=== PATIENT | male | born 1955 | race African-American/Black ===

== ENCOUNTER 2018-02-19 09:30 | Emergency (ER) | payer OTHER ==
[2018-02-19] MEDS ORDERED: LORazepam 1 MG TAB PO STA ×2 (10:38→12:05)
--- NOTE | 2018-02-19 10:42 | ED ---
General Adult HPI - General Chief complaint: Recheck/Abnormal Lab/Rx Stated complaint: "wants Haldol out of system" Time Seen by Provider: 02/19/18 10:26 Source: patient, RN notes reviewed Mode of arrival: ambulatory Limitations: no limitations - History of Present Illness Initial comments: Patient is a pleasant 62-year-old male presenting to the emergency department with feeling somewhat restless and agitated. Patient states this feeling has been occurring for approximately 7 years. Patient questions if he could have Haldol system. Patient states she does not take Haldol. Patient states he does go to [facility] however has not seen a psychiatrist and a long time. Patient does have an appointment there tomorrow. Patient denies any suicidal or homicidal thoughts. No depression. No hallucinations. Patient denies street drug use other than occasional marijuana. Patient denies hard alcohol use. No physical complaints. - Related Data Home Medications Medication Instructions Recorded Confirmed No Known Home Medications 02/19/18 02/19/18 Allergies Allergy/AdvReac Type Severity Reaction Status Date / Time No Known Allergies Allergy Verified 02/19/18 09:51 Review of Systems ROS Statement: Those systems with pertinent positive or pertinent negative responses have been documented in the HPI. ROS Other: All systems not noted in ROS Statement are negative. Constitutional: Denies: fever Eyes: Denies: eye pain ENT: Denies: ear pain Respiratory: Denies: cough Cardiovascular: Denies: chest pain Endocrine: Denies: fatigue Gastrointestinal: Denies: abdominal pain Genitourinary: Denies: dysuria Musculoskeletal: Denies: back pain Skin: Denies: rash Neurological: Denies: weakness Psychiatric: Denies: depression, auditory hallucinations, visual hallucinations , homicidal thoughts, suicidal thoughts Past Medical History Additional Past Medical History / Comment(s): "some kind of mental illness" History of Any Multi-Drug Resistant Organisms: None Reported Past Surgical History: No Surgical Hx Reported Past Psychological History: Unable to Obtain Smoking Status: Current every day smoker Past Alcohol Use History: None Reported Past Drug Use History: None Reported General Exam Limitations: no limitations General appearance: alert, in no apparent distress Head exam: Present: atraumatic Eye exam: Present: normal appearance Neck exam: Present: normal inspection Respiratory exam: Present: normal lung sounds bilaterally Cardiovascular Exam: Present: regular rate, normal rhythm GI/Abdominal exam: Present: soft. Absent: tenderness Extremities exam: Present: normal inspection Neurological exam: Present: alert Psychiatric exam: Present: normal affect, normal mood. Absent: agitated, homicidal ideation, suicidal ideation Skin exam: Present: normal color Course Vital Signs 02/19/18 09:37 Temperature 98.4 F Pulse Rate 74 Respiratory 20 Rate Blood Pressure 170/79 O2 Sat by Pulse 99 Oximetry Medical Decision Making - Medical Decision Making Long discussion was had with patient and he and I are both in agreement that his medications are best managed by his psychiatrist. Patient states he does have an appointment with [facility] tomorrow and will further discuss this at that time. Patient is able to contract for safety. No suicidal or homicidal thoughts. No hallucinations. Disposition Clinical Impression: Restless Disposition: HOME SELF-CARE Condition: Stable Additional Instructions: Please follow-up tomorrow with [facility] as planned. Please discuss with them your medications and your symptoms. Return for hallucinations, thoughts of harming yourself or others, worsening symptoms or other concerns. Is patient prescribed a controlled substance at d/c from ED?: No Referrals: Margarita Simeon MD [STAFF PHYSICIAN] - 1-2 days Anival Mcghee DO [Doctor of Osteopathic Medicine] - 1-2 days Time of Disposition: 10:42
[2018-02-19 11:27] VITALS: RESP 18
[2018-02-19] MEDS ORDERED: cloNIDine HCL 0.1 MG TAB PO STA (12:05)
--- NOTE | 2018-02-19 12:24 | ED ---
Medical Decision Making - Medical Decision Making 12:24 PM: Patient has continued high blood pressure with no history. Labs and EKG ordered. EKG shows sinus bradycardia 43. LA 134. QRS 106. QT 496. QTc 419. Normal axis. LVH criteria. No acute ST change. 1407: Blood pressure has improved. Patient will need to follow-up with primary care physician regarding hypertension. - Lab Data Result diagrams: 02/19/18 12:20 02/19/18 12:20 Lab Results 02/19/18 02/19/18 02/19/18 Range/Units 12:20 12:20 12:25 WBC 6.5 (3.8-10.6) k/uL RBC 5.38 (4.30-5.90) m/uL Hgb 17.1 (13.0-17.5) gm/dL Hct 52.8 (39.0-53.0) % MCV 98.3 (80.0-100.0) fL MCH 31.8 (25.0-35.0) pg MCHC 32.3 (31.0-37.0) g/dL RDW 14.1 (11.5-15.5) % Plt Count 199 (150-450) k/uL Neutrophils % 57 % Lymphocytes % 28 % Monocytes % 4 % Eosinophils % 7 % Basophils % 2 % Neutrophils # 3.7 (1.3-7.7) k/uL Lymphocytes # 1.8 (1.0-4.8) k/uL Monocytes # 0.3 (0-1.0) k/uL Eosinophils # 0.5 (0-0.7) k/uL Basophils # 0.1 (0-0.2) k/uL Sodium 142 (137-145) mmol/L Potassium 4.4 (3.5-5.1) mmol/L Chloride 104 (98-107) mmol/L Carbon Dioxide 30 (22-30) mmol/L Anion Gap 8 mmol/L BUN 14 (9-20) mg/dL Creatinine 1.22 (0.66-1.25) mg/dL Est GFR (CKD-EPI)AfAm 72 (>60 ml/min/1.73 sqM) Est GFR (CKD-EPI)NonAf 63 (>60 ml/min/1.73 sqM) Glucose 113 H (74-99) mg/dL Calcium 10.0 (8.4-10.2) mg/dL Urine Color Yellow Urine Appearance Clear (Clear) Urine pH 7.0 (5.0-8.0) Ur Specific Webb 1.016 (1.001-1.035) Urine Protein Trace H (Negative) Urine Glucose (UA) Negative (Negative) Urine Ketones Negative (Negative) Urine Blood Negative (Negative) Urine Nitrite Negative (Negative) Urine Bilirubin Negative (Negative) Urine Urobilinogen <2.0 (<2.0) mg/dL Ur Leukocyte Esterase Negative (Negative) Disposition Clinical Impression: Restless, Hypertension Disposition: HOME SELF-CARE Condition: Stable Additional Instructions: Please follow-up tomorrow with [facility] as planned. Please discuss with them your medications and your symptoms. Return for hallucinations, thoughts of harming yourself or others, worsening symptoms or other concerns. Please also follow- up with primary care physician in the next day or 2 for recheck. You will need to have blood pressure rechecked and possibly be placed on medication for this. Is patient prescribed a controlled substance at d/c from ED?: No Referrals: Margarita Simeon MD [STAFF PHYSICIAN] - 1-2 days Anival Mcghee DO [Doctor of Osteopathic Medicine] - 1-2 days
[2018-02-19 12:35] LABS: Basophils # (A) 0.1 k/uL (0-0.2); Basophils % (A) 2 %; Eosinophils # (A) 0.5 k/uL (0-0.7); Eosinophils % (A) 7 %; HCT 52.8 % (39.0-53.0); HGB 17.1 gm/dL (13.0-17.5); Lymphocytes # (A) 1.8 k/uL (1.0-4.8); Lymphocytes % (A) 28 %; MCH 31.8 pg (25.0-35.0); MCHC 32.3 g/dL (31.0-37.0); MCV 98.3 fL (80.0-100.0); Mean Platelet Volume 8.9; Monocytes # (A) 0.3 k/uL (0-1.0); Monocytes % (A) 4 %; Neutrophils # (A) 3.7 k/uL (1.3-7.7); Neutrophils % (A) 57 %; Platelet Count 199 k/uL (150-450); RBC 5.38 m/uL (4.30-5.90); RDW 14.1 % (11.5-15.5); WBC 6.5 k/uL (3.8-10.6)
[2018-02-19 12:44] LABS: Appearance,Urine Clear (Clear); Bilirubin,Urine Negative (Negative); Blood,Urine Negative (Negative); Color,Urine Yellow; Glucose,Urine (UA) Negative (Negative); Ketones,Urine Negative (Negative); Leukocyte Esterase,Urine Negative (Negative); Nitrite,Urine Negative (Negative); Protein,Urine Trace (Negative); Specific Gravity,Urine 1.016 (1.001-1.035); Urobilinogen,Urine <2.0 mg/dL (<2.0)
[2018-02-19 12:48] LABS: Potassium 4.4 mmol/L (3.5-5.1)
--- NOTE | 2018-02-19 13:30 | XR ---
EXAMINATION TYPE: XR chest 2V DATE OF EXAM: 02/19/2018 COMPARISON: NONE TECHNIQUE: PA and lateral views submitted. HISTORY: Hypertension FINDINGS: The lungs are clear and there is no pneumothorax, pleural effusion, or focal pneumonia. Atheroscler otic change of the aorta. There is hyperinflation. Hypertrophic and degenerative change of the spine. No overt failure. IMPRESSION: 1. No acute process. Correlate for COPD.
[2018-02-19 14:08] VITALS: BP 164/83; PULSE 55; TEMP 98
== END 2018-02-19 14:14 | disposition home or self-care (01) ==
LOC: EC 09:30
DX: I10 Essential (primary) hypertension (principal); R45.1 Restlessness and agitation; R00.1 Bradycardia, unspecified; F17.200 Nicotine dependence, unspecified, uncomplicated
CPT/HCPCS: 36415; 71046; 80048; 81003; 85025; 93005; 99285

== ENCOUNTER 2019-12-16 07:31 | Inpatient (IN) | payer MEDICARE, OTHER ==
--- NOTE | 2019-12-16 07:53 | ED ---
General Adult HPI - General Chief complaint: Psychiatric Symptoms Stated complaint: blood draw Time Seen by Provider: 12/16/19 07:41 Source: patient, RN notes reviewed Mode of arrival: ambulatory Limitations: no limitations - History of Present Illness Initial comments: Patient is a 64 year old male presenting to the emergency Department with concerns regarding his Depakote level. Patient states he is not sure if he might have too much. Patient states he is not actually taking it. Patient has flight of ideas. Patient states he wants his fingernails cleaned. Patient is talking to people who are not present. Patient is acting somewhat agitated. - Related Data Home Medications Medication Instructions Recorded Confirmed Unable To Assess [Unable to Assess] 12/16/19 12/16/19 Allergies Allergy/AdvReac Type Severity Reaction Status Date / Time No Known Allergies Allergy Verified 12/16/19 07:39 Review of Systems ROS Statement: Those systems with pertinent positive or pertinent negative responses have been documented in the HPI. ROS Other: All systems not noted in ROS Statement are negative. Constitutional: Denies: fever Eyes: Denies: eye pain ENT: Denies: ear pain Respiratory: Denies: cough Cardiovascular: Denies: chest pain Endocrine: Denies: fatigue Gastrointestinal: Denies: abdominal pain Genitourinary: Denies: dysuria Musculoskeletal: Denies: back pain Skin: Denies: rash Neurological: Denies: weakness Past Medical History Additional Past Medical History / Comment(s): "some kind of mental illness" History of Any Multi-Drug Resistant Organisms: None Reported Past Surgical History: No Surgical Hx Reported Past Psychological History: Unable to Obtain Smoking Status: Current every day smoker Past Alcohol Use History: None Reported Past Drug Use History: Marijuana General Exam Limitations: no limitations General appearance: alert, in no apparent distress Head exam: Present: atraumatic, normocephalic Eye exam: Present: normal appearance Respiratory exam: Present: normal lung sounds bilaterally Cardiovascular Exam: Present: regular rate, normal rhythm Extremities exam: Present: normal inspection Neurological exam: Present: alert Expanded Focused psych exam: Present: internal stimuli, restlessness, flight of ideas Skin exam: Present: normal color Course Vital Signs 12/16/19 07:32 Temperature 97.7 F Pulse Rate 99 Respiratory 18 Rate Blood Pressure 140/83 O2 Sat by Pulse 97 Oximetry EKG Findings - EKG Comments: EKG Findings:: Normal sinus rhythm 79. [place] 118. QRS 102. QT 4:30. QTC 493. Normal axis. LVH. No acute ST change. Medical Decision Making - Medical Decision Making Patient seen by mental health services was plan for admission - Lab Data Result diagrams: 12/16/19 07:50 12/16/19 07:50 Lab Results 12/16/19 12/16/19 12/16/19 Range/Units 07:50 07:50 08:13 WBC 9.7 (3.8-10.6) k/uL RBC 5.37 (4.30-5.90) m/uL Hgb 17.2 (13.0-17.5) gm/dL Hct 52.1 (39.0-53.0) % MCV 97.0 (80.0-100.0) fL MCH 32.0 (25.0-35.0) pg MCHC 33.0 (31.0-37.0) g/dL RDW 13.3 (11.5-15.5) % Plt Count 187 (150-450) k/uL Neutrophils % 64 % Lymphocytes % 25 % Monocytes % 6 % Eosinophils % 2 % Basophils % 0 % Neutrophils # 6.2 (1.3-7.7) k/uL Lymphocytes # 2.4 (1.0-4.8) k/uL Monocytes # 0.6 (0-1.0) k/uL Eosinophils # 0.2 (0-0.7) k/uL Basophils # 0.0 (0-0.2) k/uL Sodium 136 L (137-145) mmol/L Potassium 4.1 (3.5-5.1) mmol/L Chloride 104 (98-107) mmol/L Carbon Dioxide 24 (22-30) mmol/L Anion Gap 8 mmol/L BUN 22 H (9-20) mg/dL Creatinine 1.17 (0.66-1.25) mg/dL Est GFR (CKD-EPI)AfAm 75 (>60 ml/min/1.73 sqM) Est GFR (CKD-EPI)NonAf 65 (>60 ml/min/1.73 sqM) Glucose 108 H (74-99) mg/dL Calcium 9.4 (8.4-10.2) mg/dL Urine Opiates Screen Not Detected (NotDetected) Ur Oxycodone Screen Not Detected (NotDetected) Urine Methadone Screen Not Detected (NotDetected) Ur Propoxyphene Screen Not Detected (NotDetected) Ur Barbiturates Screen Not Detected (NotDetected) Valproic Acid <10.0 ug/mL U Tricyclic Antidepress Not Detected (NotDetected) Ur Phencyclidine Scrn Not Detected (NotDetected) Ur Amphetamines Screen Detected H (NotDetected) U Methamphetamines Scrn Detected H (NotDetected) U Benzodiazepines Scrn Not Detected (NotDetected) Urine Cocaine Screen Not Detected (NotDetected) U Marijuana (THC) Screen Detected H (NotDetected) Serum Alcohol <10 mg/dL Disposition Clinical Impression: Psychosis Disposition: TRANSFER TO PSYCH HOSP/UNIT Is patient prescribed a controlled substance at d/c from ED?: No Referrals: None,Stated [Primary Care Provider] - 1-2 days Decision Time: 13:30
[2019-12-16 08:13] LABS: Basophils % (A) 0 %; Eosinophils # (A) 0.2 k/uL (0-0.7); Eosinophils % (A) 2 %; HCT 52.1 % (39.0-53.0); HGB 17.2 gm/dL (13.0-17.5); Lymphocytes # (A) 2.4 k/uL (1.0-4.8); Lymphocytes % (A) 25 %; Mean Platelet Volume 9.9; Monocytes # (A) 0.6 k/uL (0-1.0); Monocytes % (A) 6 %; Neutrophils # (A) 6.2 k/uL (1.3-7.7); Neutrophils % (A) 64 %; Platelet Count 187 k/uL (150-450); RBC 5.37 m/uL (4.30-5.90); RDW 13.3 % (11.5-15.5); WBC 9.7 k/uL (3.8-10.6)
[2019-12-16 08:24] LABS: African American GFR (CKD) 75 (>60 ml/min/1.73 sqM); Alcohol <10 mg/dL; Anion Gap 8 mmol/L; Blood Urea Nitrogen 22 mg/dL (9-20); Calcium 9.4 mg/dL (8.4-10.2); Carbon Dioxide 24 mmol/L (22-30); Chloride 104 mmol/L (98-107); Glucose 108 mg/dL (74-99); Non-African American GFR(CKD) 65 (>60 ml/min/1.73 sqM); Potassium 4.1 mmol/L (3.5-5.1); Sodium 136 mmol/L (137-145)
[2019-12-16 08:50] LABS: Amphetamine Screen,Urine Detected (NotDetected); Barbiturate Screen,Urine Not Detected (NotDetected); Benzodiazepines Screen,Urine Not Detected (NotDetected); Cocaine Screen,Urine Not Detected (NotDetected); Methadone Screen, Urine Not Detected (NotDetected); Opiate Screen,Urine Not Detected (NotDetected); Oxycodone Screen, Urine Not Detected (NotDetected); Phencyclidine Screen,Urine Not Detected (NotDetected); Tricyclic Antidepressant,Urine Not Detected (NotDetected); Urn Cannabinoid Scrn Detected (NotDetected)
[2019-12-16 09:24] LABS: Valproic Acid (Depakene) <10.0 ug/mL
[2019-12-16] MEDS ORDERED: LORazepam 1 MG TAB PO PRN (18:21)
[2019-12-16] MEDS ORDERED: MAGNESIUM HYDROXIDE 2,400 MG/10 ML CUP PO PRN (18:21)
[2019-12-16] MEDS ORDERED: MAG HYDROX/AL HYDROX/SIMETH 30 ML CUP PO PRN (18:21)
[2019-12-16] MEDS ORDERED: ACETAMINOPHEN TAB 325 MG TAB PO PRN (18:21)
[2019-12-16] MEDS ORDERED: ZIPRASIDONE 20 MG VIAL IM PRN (18:21)
[2019-12-16] MEDS ORDERED: LORazepam 2 MG/ML INJ IM PRN (18:26)
[2019-12-16] MEDS ORDERED: traZODone HCL 50 MG TAB PO PRN (18:26)
[2019-12-16 19:38] VITALS: RESP 16
[2019-12-16] MEDS: NICOTINE 14MG/24HR PATCH TRANSDERM SCH (21:48)
--- NOTE | 2019-12-16 23:10 | P.PN ---
Progress Note - Text Progress Note Date: 12/16/19 as i was starting the interview, patient turned violent , using offensive language , and violent gestures with his hand . I had to leave the room and stop the interview please notify sound physicians, when patient is more appropriate for evaluation
[2019-12-17 08:49] LABS: Albumin 3.9 g/dL (3.5-5.0); Calcium 9.2 mg/dL (8.4-10.2); Potassium 4.3 mmol/L (3.5-5.1); Total Bilirubin 0.8 mg/dL (0.2-1.3); Total Protein 6.6 g/dL (6.3-8.2)
[2019-12-17] MEDS ORDERED: BENZTROPINE MESYLATE 1 MG TAB PO PRN (09:04)
[2019-12-17] MEDS: NICOTINE 14MG/24HR PATCH TRANSDERM SCH (11:19)
[2019-12-17] MEDS: THIOTHIXENE 5 MG CAP PO SCH ×2 (11:19→22:13)
--- NOTE | 2019-12-17 13:10 | P.HP ---
Psychiatric H&P - . H&P Date: 12/17/19 History & Physical: IDENTIFYING DATA: Is a 64-year-old -[place] male who has a history of chronic and persistent mental illness. He presented to the emergency department acutely agitated and requesting a "Depakote level." HISTORY OF PRESENT ILLNESS: He presented acutely agitated and according to the EPS notes he was pacing and yelling randomly. He perseverated about needing a Depakote level and complaining that his "feet hurt." The EPS nurse notes that he appeared to be responding to internal stimuli. He told me he came in hospital because he was homeless and needed to get back on Navane. Speech was vague and disorganized. He expressed today well-formed delusional belief that "sometime in the past" his medications were "tampered." He alleged that he has a "lump" in his throat and when he presses the "lump" he is able to speak like a "white person." He also complained that his been homeless for the last 3 weeks after being evicted from his apartment. He allegedly lived in the apartment since 2000 (his history is consistent because he also alleged that he was living in [place] in 2000). His landlord evicted him because the landlord alleged he "did something". He gave a disjointed than incoherent story about underage drinking, dancing and bothering the neighbors. Since he was evicted from the apartment he has been sleeping outside at a local park. He is going to [employer]ian[employer] for meals. He was unable to get into the halfway because they were "full". He described feeling depressed about his homeless situation but denied thoughts of or suicide. He was similarly anxious about his homeless situation but denied persistent and uncontrollable anxiety. He denied use of alcohol or drugs. He denied experiencing auditory, visual or olfactory hallucinations, ideas reference, thought insertion set her up. His UDS was positive for amphetamine, methamphetamine and marijuana. PAST PSYCHIATRIC HISTORY: He has history of a schizophrenia. According to the [facility] records he was last evaluated in November 2016. Where he was prescribed olanzapine 10 mg daily. He would not talk about past psychiatric hospitalizations. PAST MEDICAL HISTORY: See hospitalist consult note ALLERGIES: NO KNOWN DRUG ALLERGIES SUBSTANCE USE HISTORY: He denied a history of alcohol or drug use problems. FAMILY PSYCHIATRIC/SUBSTANCE USE HISTORY: He is unaware of family history of mental illness LEGAL HISTORY: Denied SOCIAL HISTORY: His born and raised in [place]. He graduated from high school. He alleged that he is and has one son with whom he has limited contact ([facility] liaison was present during team meeting and stated that she was unaware that he was ever ). He is unemployed and receives Social Security disability. MENTAL STATUS EXAM: He presented as a thin and malodorous elderly - [place] male who was pleasant on approach. He made eye contact and attended the interview. He had no distinguishing features or prominent physical abnormalities. He had a blunted facial expression. He is alert and oriented to person, place and time. He has psychomotor retardation but no abnormal involuntary movements. Her speech was spontaneous with decreased rate and rhythm. He had no articulation difficulties. His affect was blunted but stable and appropriate. He denied suicidal ideation or wishes. He denied homicidal ideation. He denied feeling hopeless, helpless or worthless. He r uminated about his homelessness did not express clear ideas reference or paranoid ideation. He expressed today well-formed and apparently persistent delusional belief as described above. His thinking was concrete and associations were intermittently not goal directed. He denied hallucinations and did not appear to be responding to internal stimuli. Global impression of intellect is average. He has limited awareness or understanding of his illness is accepting of the need for treatment. STRENGTHS: Stable income, good physical health WEAKNESSES: Homelessness, lack of family support, chronic persistent mental illness IMPRESSION: He is a 64-year-old [place] male who has history of a schizophrenia. [facility] and disorganized. He lost his apartment through his goal and has been living outside [facility]. The best I can tell is that he has been out of mental health treatment for several years. He expressed interest in restarting treatment, specifically Navane, and speaking with the child protective services social worker. He should be treated inpatient basis with combination of psychopharmacology and multimodal therapy. He would benefit from engagement with community mental health services. PRINCIPLE DIAGNOSIS: Schizophrenia continuous, methamphetamine use disorder, cannabis use disorder, lack of housing, poor compliance with mental health treatment RECOMMENDATION: Admit to the psychiatric unit. Safety precautions. Consult medicine for initial physical exam and medical history. child protective services social worker to complete initial psychosocial assessment coordinate discharge and aftercare. Begin Navane 5 mg by mouth twice a day and titrated according to clinical response and tolerance. Cogentin 1 mg by mouth twice a day when necessary for EPS. Encourage participation in therapeutic groups and activities. Evaluate clinical status response to treatment daily basis. Allergies Allergy/AdvReac Type Severity Reaction Status Date / Time No Known Allergies Allergy Verified 12/16/19 07:39 Vital Signs Temp 0 F L 12/17/19 03:33 Pulse 61 12/16/19 19:37 Resp 16 12/16/19 19:37 BP 145/87 12/16/19 19:37 Pulse Ox 99 12/16/19 19:37 Intake & Output 12/16/19 12/17/19 12/17/19 18:59 06:59 18:59 Weight 68.039 kg 62.5 kg Laboratory Last Values WBC 9.7 k/uL (3.8-10.6) 12/16/19 07:50 RBC 5.37 m/uL (4.30-5.90) 12/16/19 07:50 Hgb 17.2 gm/dL (13.0-17.5) 12/16/19 07:50 Hct 52.1 % (39.0-53.0) 12/16/19 07:50 MCV 97.0 fL (80.0-100.0) 12/16/19 07:50 MCH 32.0 pg (25.0-35.0) 12/16/19 07:50 MCHC 33.0 g/dL (31.0-37.0) 12/16/19 07:50 RDW 13.3 % (11.5-15.5) 12/16/19 07:50 Plt Count 187 k/uL (150-450) 12/16/19 07:50 Neutrophils % 64 % 12/16/19 07:50 Lymphocytes % 25 % 12/16/19 07:50 Monocytes % 6 % 12/16/19 07:50 Eosinophils % 2 % 12/16/19 07:50 Basophils % 0 % 12/16/19 07:50 Neutrophils # 6.2 k/uL (1.3-7.7) 12/16/19 07:50 Lymphocytes # 2.4 k/uL (1.0-4.8) 12/16/19 07:50 Monocytes # 0.6 k/uL (0-1.0) 12/16/19 07:50 Eosinophils # 0.2 k/uL (0-0.7) 12/16/19 07:50 Basophils # 0.0 k/uL (0-0.2) 12/16/19 07:50 Sodium 136 mmol/L (137-145) L 12/16/19 07:50 Potassium 4.1 mmol/L (3.5-5.1) 12/16/19 07:50 Chloride 104 mmol/L (98-107) 12/16/19 07:50 Carbon Dioxide 24 mmol/L (22-30) 12/16/19 07:50 Anion Gap 8 mmol/L 12/16/19 07:50 BUN 22 mg/dL (9-20) H 12/16/19 07:50 Creatinine 1.17 mg/dL (0.66-1.25) 12/16/19 07:50 Est GFR (CKD-EPI)AfAm 75 (>60 ml/min/1.73 sqM) 12/16/19 07:50 Est GFR (CKD-EPI)NonAf 65 (>60 ml/min/1.73 sqM) 12/16/19 07:50 Glucose 108 mg/dL (74-99) H 12/16/19 07:50 Calcium 9.4 mg/dL (8.4-10.2) 12/16/19 07:50 Urine Opiates Screen Not Detected (NotDetected) 12/16/19 08:13 Ur Oxycodone Screen Not Detected (NotDetected) 12/16/19 08:13 Urine Methadone Screen Not Detected (NotDetected) 12/16/19 08:13 Ur Propoxyphene Screen Not Detected (NotDetected) 12/16/19 08:13 Ur Barbiturates Screen Not Detected (NotDetected) 12/16/19 08:13 Valproic Acid <10.0 ug/mL 12/16/19 07:50 U Tricyclic Antidepress Not Detected (NotDetected) 12/16/19 08:13 Ur Phencyclidine Scrn Not Detected (NotDetected) 12/16/19 08:13 Ur Amphetamines Screen Detected (NotDetected) H 12/16/19 08:13 U Methamphetamines Scrn Detected (NotDetected) H 12/16/19 08:13 U Benzodiazepines Scrn Not Detected (NotDetected) 12/16/19 08:13 Urine Cocaine Screen Not Detected (NotDetected) 12/16/19 08:13 U Marijuana (THC) Screen Detected (NotDetected) H 12/16/19 08:13 Serum Alcohol <10 mg/dL 12/16/19 07:50 12/17/19 08:48 12/17/19 13:08
[2019-12-17 19:23] LABS: Hemoglobin A1C 5.5 % (4.0-6.0)
[2019-12-18] MEDS: THIOTHIXENE 5 MG CAP PO SCH ×2 (10:32→20:54)
--- NOTE | 2019-12-18 12:02 | P.PN ---
Progress Note - Text Progress Note Date: 12/18/19 Clinical Problems: Schizophrenia continuous, methamphetamine use disorder, cannabis use disorder, lack of housing, poor compliance with mental health treatment Interim history: I reviewed the medical record, interviewed the patient and discuss his treatment and treatment plan during team meeting. He became angry with me when I asked to talk about the results of the urine drug screen. He alleged that he was "at an apartment" and took a "drag" on his cigarette when he noticed that there were something in the cigarette more than tobacco. He then threw the cigarette away. He's been compliant with Navane 5 mg by mouth twice a day and denied any side effects. He perseverated about planning to move into an apartment. He talked as though he would remain in the hospital until apartment became available. He became angry when I told that he would most likely be discharge before his apar tment becomes available and we would need to find an alternate arrangement such as a halfway. He would not cooperate with the medical history and physical exam on admission. Mental status exam: He presented as a thin elderly Pakistani male who is irritable and restless. He made eye contact and appeared to attend to the interview. He had a blunted facial expression. He showed no abnormal involu ntary movements. Her speech was spontaneous and consistent with his mood. His affect was labile but not intense and appropriate. He denied suicidal or homicidal ideation. He denied feeling hopeless, helpless or worthless. I did not express clear ideas reference or delusional thoughts but was guarded and suspicious. His thinking was clear concrete and associations were not fully organized and goal directed. He did not appear to responding to internal stimuli. Assessment: I suspect that his psychosis worsens as a result of use of methamphetamine. Plan: Continue inpatient treatment. Continue seizure precautions. Continue Navane 5 mg by mouth twice a day and titrated according to clinical response and tolerance. scrap yard worker to coordinate discharge and aftercare. Evaluate clinical status response to treatment daily basis.
[2019-12-19 06:35] VITALS: BP 138/65; PULSE 44
[2019-12-19] MEDS: THIOTHIXENE 5 MG CAP PO SCH (09:23)
[2019-12-19 13:33] VITALS: TEMP 98.1
--- NOTE | 2019-12-19 15:13 | P.DS ---
Providers Date of admission: 12/16/19 18:15 Attending physician: Serge Guido MD Consults: 12/16/19 18:21 Consult Physician Routine Consulting Provider: [facility] Consult Reason/Comments: H&P and medical Do you want consulting provider notified?: Yes Primary care physician: Stated None - Discharge Diagnosis(es) (1) Schizophrenia in partial remission with history of multiple episodes Current Visit: Yes Status: Chronic Priority: Medium (2) Mild methamphetamine use disorder Current Visit: Yes Status: Acute Priority: High (3) Tobacco use disorder Current Visit: Yes Status: Chronic Priority: Medium Hospital Course: HISTORY: He is a 64-year-old -Polish male who has a history of chronic and persistent mental illness. He presented to the emergency department acutely agitated and requesting a "Depakote level." He presented acutely agitated and according to the EPS notes he was pacing and yelling randomly. He perseverated about needing a Depakote level and complaining that his "feet hurt." The EPS nurse notes that he appeared to be responding to internal stimuli. He told me he came in hospital because he was homeless and needed to get back on Navane. Speech was vague and disorganized. He expressed today well-formed delusional belief that "sometime in the past" his medications were "tampered." He alleged that he has a "lump" in his throat and when he presses the "lump" he is able to speak like a "white person." He also complained that his been homeless for the last 3 weeks after being evicted from his apartment. He allegedly lived in the apartment since 2000 (his history is consistent because he also alleged that he was living in [place] in 2000). His landlord evicted him because the landlord alleged he "did something". He gave a disjointed than incoherent story about underage drinking, dancing and bothering the neighbors. Since he was evicted from the apartment he has been sleeping outside at a local park. He is going to [employer] for meals. He was unable to get into the [facility] because they were "full". He described feeling depressed about his homeless situation but denied thoughts of or suicide. He was similarly anxious about his homeless situation but denied persistent and uncontrollable anxiety. He denied use of alcohol or drugs. He denied experiencing auditory, visual or olfactory hallucinations, ideas reference, thought insertion set her up. His UDS was positive for amphetamine, methamphetamine and marijuana. He became markedly angry and irritable when I inquired about his methamphetamine use after explaining the results of the urine drug screen. He has history of a schizophrenia. According to the [facility] records he was last evaluated in November 2016. Where he was prescribed olanzapine 10 mg daily. He would not talk about past psychiatric hospitalizations. HOSPITAL COURSE: We admitted him to the psychiatric unit voluntarily under the care of this technical writer and editor. We provided a comprehensive biopsychosocial assessment. He would not speak or consent to the medical evaluation. We started Navane 5 mg by mouth twice a day. He experienced no adverse effects to the initial doses. His irritability and agitation quickly abated. He perseverated about wanting to be discharge to an apartment. The social work job titles met with him and explained that we would not be able to place him in an apartment. Our only option would be to refer him to the local [facility] who could assist him with available housing r esources. He posed no management problem and had no episodes of behavioral dyscontrol. He participated in therapeutic groups and activities. MENTAL STATUS ON DISCHARGE: He presented as a thin elderly Polish male who is irritable and restless. He made eye contact and appeared to attend to the interview. He had a blunted facial expression. He showed no abnormal involuntary movements. Her speech was spontaneous and consistent with his mood. His affect was labile but not intense and appropriate. He denied suicidal or homicidal ideation. He denied feeling hopeless, helpless or worthless. He did not express clear ideas reference or delusional thoughts but was guarded and suspicious. His thinking was concrete but his associations were goal directed. He did not appear to responding to internal stimuli. DISPOSITION: He is discharged local [facility] with an appointment at [facility] on 12/24/2019 at 2:30 PM. His only discharge medication was Navane 5 mg by mouth twice a day. Patient Condition at Discharge: Stable Plan - Discharge Summary New Discharge Prescriptions: New Thiothixene [Navane] 5 mg PO BID #60 cap Discharge Medication List Thiothixene [Navane] 5 mg PO BID #60 cap 12/19/19 [Rx] Follow up Appointment(s)/Referral(s): [facility] [Outside] - 12/24/19 2:30 pm (w/ [facility] in person ) None,Stated [Primary Care Provider] - 1-[address] [facility] [NON-STAFF] - 1 Week Patient Instructions/Handouts: Schizophrenia (DC), Cannabis Abuse (DC), Methamphetamine Abuse (DC) Activity/Diet/Wound Care/Special Instructions: Activity and diet as tolerated. Avoid the use of street drugs and alcohol. Take all medications as prescribed. When you are in need of refills on your medications please contact your medical provider and/or outpatient psychiatrist to have this done. Please go to scheduled outpatient appointment for aftercare treatment. If symptoms return or become worse, call the crisis line at and/or go to the nearest emergency room for evaluation Discharge Disposition: HOME SELF-CARE
== END 2019-12-19 14:29 | disposition home or self-care (01) | DRG 885 ==
LOC: EC 07:31 → 3MHU 18:15
PROVIDERS: ADMIT Psychiatry & Neurology Psychiatry; ATTEND Psychiatry & Neurology Psychiatry
DX: F20.9 Schizophrenia, unspecified (principal); F12.10 Cannabis abuse, uncomplicated; F15.10 Other stimulant abuse, uncomplicated; F17.200 Nicotine dependence, unspecified, uncomplicated; Z59.0 Homelessness
CPT/HCPCS: 36415; 80048; 80053; 80061; 80164; 80306; 80320; 82075; 83036; 84443; 85025; 93005; 99285

== ENCOUNTER 2020-11-25 12:12 | Observation (INO) | payer MEDICARE ==
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
[2020-11-25 17:20] LABS: Amphetamine Screen,Urine Detected (NotDetected); Barbiturate Screen,Urine Not Detected (NotDetected); Benzodiazepines Screen,Urine Not Detected (NotDetected); Cocaine Screen,Urine Detected (NotDetected); Methadone Screen, Urine Not Detected (NotDetected); Opiate Screen,Urine Not Detected (NotDetected); Oxycodone Screen, Urine Not Detected (NotDetected); Phencyclidine Screen,Urine Not Detected (NotDetected); Tricyclic Antidepressant,Urine Not Detected (NotDetected); Urn Cannabinoid Scrn Detected (NotDetected)
[2020-11-25] MEDS ORDERED: OLANZapine 10 MG VIAL IM STA (19:12)
[2020-11-25] MEDS ORDERED: SODIUM CHLORIDE 0.9% 1,000 ML IV ONE (19:15)
[2020-11-25 19:39] LABS: Basophils % (A) 0 %; Eosinophils # (A) 0.2 k/uL (0-0.7); Eosinophils % (A) 2 %; HCT 47.4 % (39.0-53.0); HGB 16.3 gm/dL (13.0-17.5); Lymphocytes # (A) 1.9 k/uL (1.0-4.8); Lymphocytes % (A) 22 %; MCH 33.1 pg (25.0-35.0); MCHC 34.5 g/dL (31.0-37.0); Mean Platelet Volume 10.5; Monocytes # (A) 0.5 k/uL (0-1.0); Monocytes % (A) 6 %; Neutrophils # (A) 6.1 k/uL (1.3-7.7); Neutrophils % (A) 68 %; Platelet Count 157 k/uL (150-450); RBC 4.93 m/uL (4.30-5.90); RDW 13.8 % (11.5-15.5)
[2020-11-25 19:56] LABS: Albumin 5.1 g/dL (3.5-5.0); Calcium 10.1 mg/dL (8.4-10.2); Potassium 4.2 mmol/L (3.5-5.1); Total Bilirubin 0.6 mg/dL (0.2-1.3); Total Protein 8.2 g/dL (6.3-8.2)
[2020-11-25] MEDS ORDERED: LORazepam 2 MG/ML INJ IV STA (22:46)
--- NOTE | 2020-11-26 01:00 | P.HPIM ---
History of Present Illness H&P Date: 11/26/20 The patient is a 65-year-old male with a PMH of psychosis and polysubstance abuse who was brought in under police custody due to erratic behavior. The patient had reported recently using multiple substances including methamphetamine and cocaine. In the emergency room, the patient continued to be hostile and refused to answer questions. History was thereby very limited. The patient appeared to be acting erratically, aggressively posturing, grabbing at his own throat, and demanding that he be allowed to leave. He appeared to be internally preoccupied and gesturing to the wall and the clock. The patient also refused to speak multiple times. Laboratory evaluation was remarkable for urine toxicology positive for cocaine, marijuana, and methamphetamines. Review of systems: Unable to perform as patient refused to answer questions Physical examination: General: non toxic, no distress, appears at stated age, normal weight Derm: no unusual rashes/lesions no unusual visible ecchymoses Head: atraumatic, normocephalic, symmetric Eyes: Appeared to have intact EOM, patient refused examination ENT: Nose and ears appear atraumatic Neck: Patient refused Mouth: Patient refused Cardiovascular: Patient refused Lungs: Patient refused Abdominal: Patient refused Ext: Ambulating throughout the room without difficulty Neuro: Unable to assess, no obvious focal deficits noted Psych: Erratic, internally preoccupied, tangential thought process, aggressively posturing Assessment/plan Psychosis, likely secondary to polysubstance abuse -Psychiatry evaluated the patient in the emergency room and cleared him for medical admission -Zyprexa given one time in ED -Cardiac monitoring if patient allows -Advised on importance of cessation Elevated BP, likely secondary to polysubstance abuse -Monitor for now Elevated BUN -Likely prerenal azotemia due to substance abuse -Continue with IV fluids and monitor BMP DVT prophylaxis -Lovenox The patient is admitted with an anticipated less than 2 midnight stay for evaluation of psychosis CODE STATUS: Full Code Discussed with: Patient Anticipated discharge date: in am Anticipated discharge place: Home A total of 35 minutes was spent on the care of this complex patient more than 50% of the time was spent in counseling and care coordination. Past Medical History Additional Past Medical History / Comment(s): "some kind of mental illness" History of Any Multi-Drug Resistant Organisms: None Reported Past Surgical History: Orthopedic Surgery Additional Past Surgical History / Comment(s): lt knee Past Psychological History: Unable to Obtain, Schizophrenia Smoking Status: Current every day smoker, Vaper Past Alcohol Use History: None Reported Past Drug Use History: Marijuana Medications and Allergies Home Medications Medication Instructions Recorded Confirmed Type Unable To Assess [Unable to Assess] 11/25/20 11/25/20 History Allergies Allergy/AdvReac Type Severity Reaction Status Date / Time No Known Allergies Allergy Verified 11/25/20 14:10 Physical Exam Vitals: Vital Signs Temp Pulse Pulse Resp BP Pulse Ox 11/25/20 22:17 98.5 F 52 L 18 11/25/20 21:40 84 22 135/78 98 11/25/20 20:01 98.7 F 67 20 125/84 65 L 11/25/20 12:13 97.9 F 100 20 170/104 99 Intake and Output 11/25/20 11/25/20 11/26/20 14:59 22:59 06:59 Other: Weight 68.039 kg Results CBC & Chem 7: 11/25/20 19:26 11/25/20 19:26 Labs: Abnormal Lab Results - Last 24 Hours (Table) 11/25/20 11/25/20 Range/Units 16:54 19:26 BUN 28 H (9-20) mg/dL Glucose 109 H (74-99) mg/dL Albumin 5.1 H (3.5-5.0) g/dL Ur Amphetamines Screen Detected H (NotDetected) U Methamphetamines Scrn Detected H (NotDetected) Urine Cocaine Screen Detected H (NotDetected) U Marijuana (THC) Screen Detected H (NotDetected)
[2020-11-26 04:56] VITALS: BP 130/69; RESP 16; TEMP 98.2
[2020-11-26] MEDS ORDERED: ENOXAPARIN 40 MG/0.4 ML SYRINGE SQ SCH (09:00)
[2020-11-26] MEDS ORDERED: HALOPERIDOL LACTATE 5 MG/ML 1 ML VIAL IM PRN (09:20)
[2020-11-26] MEDS ORDERED: haloperidoL 5 MG TAB PO PRN (09:20)
[2020-11-26] MEDS ORDERED: LORazepam 2 MG/ML INJ IM PRN (09:20)
[2020-11-26] MEDS ORDERED: LORazepam 1 MG TAB PO PRN (09:20)
[2020-11-26] MEDS ORDERED: diphenhydrAMINE 50 MG/ML 1 ML VIAL IM PRN (09:21)
[2020-11-26 09:41] LABS: African American GFR (CKD) 89.9 (60.0-200.0); Magnesium 2.2 mg/dL (1.5-2.4); Non-African American GFR(CKD) 77.5 (60.0-200.0); Potassium 4.3 mmol/L (3.5-5.5)
--- NOTE | 2020-11-26 12:33 | P.CN ---
Psychiatric Consult - . Consult date: 11/26/20 Consult:: IDENTIFYING DATA: This patient is a ?, unemployed, 65-year-old - [place]an male was admitted for psychosis. HISTORY OF PRESENT ILLNESS: The patient presented to the hospital on 11/25/20, brought in by police due to erratic behavior. The patient has been using multiple substances including methamphetamine and cocaine. He was noted to be very hostile and refused to answer questions in the emergency department. He was also noted to be internally preoccupied often gesturing to the wall and the clock. UDS was positive for cocaine, marijuana, and methamphetamines. The initial disposition was to discharge the patient after being given Zyprexa 5 mg IM, but the patient continued to be elevated, agitated, and responding to internal stimuli and was subsequently admitted to the hospital. Upon evaluation this morning, the patient continues to be this point significant symptoms of psychosis and kenia. He is currently nonsensical in his speech and is often speaking in many tangents and pointing at objects throughout the room. The patient currently believes that he has been admitted to a psychiatric unit, despite him being on the hospital floor. He is denying any suicidal or homicidal ideation, intention, and/or plan. Although he is denying any auditory or visual hallucinations, the patient appears to be responding to internal stimuli. He does admit to substance abuse. As per nursing report, the patient has been standing in the doorway and has been agitated. The patient has been yelling, "The court! The court!" nonsensically and is not easily re-directed. The patient is currently a poor historian at this time and much of the following history was obtained through chart review from the patient's previous inpatient admission on to the mental health unit in December 2019. PAST PSYCHIATRIC HISTORY: Patient has a history of schizophrenia. He has had previous chosen medications including Zyprexa and navane. He was last admitted to a psychiatric unit in December 2019. He was discharged on Navane. The patient follows up with [facility]. PAST MEDICAL HISTORY: ALLERGIES: NO KNOWN DRUG ALLERGIES CHEMICAL DEPENDENCY HISTORY: Patient admits to marijuana, cocaine, methamphetamine use. He has was consistent with cocaine, marijuana, and methamphetamines testing positive. FAMILY PSYCHIATRIC/SUBSTANCE USE HISTORY: Unable to assess SOCIAL HISTORY: As per chart review, the patient was born and raised in [place]. He graduated high school. He currently is unemployed and receives SSDI. MENTAL STATUS EXAM: General Appearance: Patient appears to be younger than stated age, is alert, difficult to direct, is shirtless and has multiple tattoos. Behavior: The patient is constantly pacing back and forth in his hospital room. He is often gesturing to multiple objects in the room with his hands. Psycho motor activity is elevated. Speech: Patient's speech is fluent, spontaneous, pressured, and nonsensical. Mood/Affect: Patient reports their mood is "feeling okay", affect is euphoric and intense Suicidality/Homicidality: Patient is currently denying any suicidal or homicidal ideation, intention, and/or plan. Perceptions: Patient is currently denying any auditory or visual hallucinations. Though content/process: The patient appears to be grossly disorganized and delusional. Memory and concentration: Unable to assess. Grossly intact. Judgment and insight: Very poor Vital Signs Temp 98.2 F 11/26/20 04:55 Pulse 54 L 11/26/20 04:55 Resp 16 11/26/20 04:55 BP 130/69 11/26/20 04:55 Pulse Ox 98 11/26/20 04:55 Intake & Output 11/25/20 11/26/20 11/26/20 18:59 06:59 18:59 Intake Total 540 Balance 540 Weight 68.039 kg Intake: Oral 540 Laboratory Results - Last 24 Hours 11/25/20 11/25/20 11/25/20 16:54 19:26 19:26 WBC 9.0 RBC 4.93 Hgb 16.3 Hct 47.4 MCV 96.0 MCH 33.1 MCHC 34.5 RDW 13.8 Plt Count 157 MPV 10.5 Neutrophils % 68 Lymphocytes % 22 Monocytes % 6 Eosinophils % 2 Basophils % 0 Neutrophils # 6.1 Lymphocytes # 1.9 Monocytes # 0.5 Eosinophils # 0.2 Basophils # 0.0 Sodium 140 Potassium 4.2 Chloride 101 Carbon Dioxide 29 Anion Gap 10 BUN 28 H Creatinine 1.19 Est GFR (CKD-EPI)AfAm 73 Est GFR (CKD-EPI)NonAf 63 BUN/Creatinine Ratio Glucose 109 H Calcium 10.1 Magnesium Total Bilirubin 0.6 AST 35 ALT 20 Alkaline Phosphatase 98 Total Protein 8.2 Albumin 5.1 H Urine Opiates Screen Not Detected Ur Oxycodone Screen Not Detected Urine Methadone Screen Not Detected Ur Propoxyphene Screen Not Detected Ur Barbiturates Screen Not Detected U Tricyclic Antidepress Not Detected Ur Phencyclidine Scrn Not Detected Ur Amphetamines Screen Detected H U Methamphetamines Scrn Detected H U Benzodiazepines Scrn Not Detected Urine Cocaine Screen Detected H U Marijuana (THC) Screen Detected H Coronavirus (PCR) 11/25/20 11/26/20 20:01 06:13 WBC RBC Hgb Hct MCV MCH MCHC RDW Plt Count MPV Neutrophils % Lymphocytes % Monocytes % Eosinophils % Basophils % Neutrophils # Lymphocytes # Monocytes # Eosinophils # Basophils # Sodium 140 Potassium 4.3 Chloride 106 Carbon Dioxide 25.0 Anion Gap 9.00 BUN 19.0 Creatinine 1.0 Est GFR (CKD-EPI)AfAm 89.9 Est GFR (CKD-EPI)NonAf 77.5 BUN/Creatinine Ratio 19.00 Glucose 95 Calcium 9.0 Magnesium 2.2 Total Bilirubin AST ALT Alkaline Phosphatase Total Protein Albumin Urine Opiates Screen Ur Oxycodone Screen Urine Methadone Screen Ur Propoxyphene Screen Ur Barbiturates Screen U Tricyclic Antidepress Ur Phencyclidine Scrn Ur Amphetamines Screen U Methamphetamines Scrn U Benzodiazepines Scrn Urine Cocaine Screen U Marijuana (THC) Screen Coronavirus (PCR) Not Detected IMPRESSIONS: Psychosis, unspecified History of schizophrenia Cannabis use disorder Methamphetamine use disorder Cocaine use disorder PLAN: -At this time patient DOES meet criteria for inpatient psychiatric admission. Patient appears to be responding to internal stimuli, with elevated psychomotor activity/agitation. He is currently delusional and nonsensical. He displays an inability to care for himself and is at inadvertent risk of harm to self or others due to his actively psychotic state. -Delirium precautions recommended with patient including - avoiding use of narcotics and [employer] sedatives, limit anticholinergic medications when possible, frequent re-orientation, minimize use of restraints, open window shades during the day and close them at night -Would recommend the following medication changes/additions: We'll place as needed medications for agitation. Haldol 5 mg by mouth or IM 4 times a day when necessary for agitation Ativan 2 mg by mouth or IM for more times a day when necessary for agitation Benadryl 50 mg IM 4 times a day when necessary for agitation -Continue 1:1 sitter for safety -Cannot leave AMA at this time. Patient will need a petition and certification if attempting to leave AMA. -When medically stable, patient is eligible for transfer to a psych bed when available. -Psychiatry will follow 11/26/20 12:31
--- NOTE | 2020-11-26 14:51 | P.DS ---
Providers Date of admission: 11/25/20 19:52 Expected date of discharge: 11/26/20 Attending physician: Samuel Khoury MD Consults: 11/26/20 09:10 Consult Physician Stat Consulting Provider: Leonardo Kelly Reason/Comments: Acute Psychosis Do you want consulting provider notified?: Already Contacted Primary care physician: Stated None Hospital Course: The patient is a 65-year-old male with a PMH of psychosis and polysubstance abuse who was brought in under police custody due to erratic behavior. The patient had reported recently using multiple substances including met hamphetamine and cocaine. In the emergency room, the patient continued to be hostile and refused to answer questions. History was thereby very limited. The patient appeared to be acting erratically, aggressively posturing, grabbing at his own throat, and demanding that he be allowed to leave. He appeared to be internally preoccupied and gesturing to the wall and the clock. The patient also refused to speak multiple times. Laboratory evaluation was remarkable for urine toxicology positive for cocaine, marijuana, and methamphetamines. Psychosis, likely secondary to schizophrenia Elevated blood pressure Patient was initially evaluated in the emergency room by psychiatry, determined that psychosis could be related to polysubstance abuse. However, patient contin ued demonstrate manic, psychotic behavior responding to internal stimuli following overnight admission. Therefore, was reassessed by psychiatry and determined to be appropriate for admission to the behavioral health unit. Patient remained medically stable, and is otherwise cleared for discharge from medical floor. Patient did have elevated blood pressure, likely due to polysubstance abuse, improving without further medication. Assessment: Gen: awake, alert HEENT: normocephalic, atraumatic, good hearing acuity, moist mucous membranes Resp: good air exchange, breathing comfortably with no accessory muscle use CVS: good distal perfusion x 4, GI: soft, NTTP, ND : no SPT, no CVAT, wyatt catheter not present MSK: no pitting edema, no clubbing Neuro: non-focal, moving all extremities Psych: Responding to internal stimuli, manic, psychomotor agitation Plan - Discharge Summary New Discharge Prescriptions: No Action Unable To Assess [Unable to Assess] Discharge Medication List Unable To Assess [Unable to Assess] 11/25/20 [History] Follow up Appointment(s)/Referral(s): None,Stated [Primary Care Provider] - 1-2 days
[2020-11-26 14:59] VITALS: PULSE 77
== END 2020-11-26 18:24 ==
LOC: EC 12:12 → 5NMEDONC 19:52
PROVIDERS: ADMIT Internal Medicine; ATTEND Internal Medicine
DX: F23 Brief psychotic disorder (principal); F14.10 Cocaine abuse, uncomplicated; F15.10 Other stimulant abuse, uncomplicated; F12.10 Cannabis abuse, uncomplicated; R03.0 Elevated blood-pressure reading, without diagnosis of hypertension; R79.89 Other specified abnormal findings of blood chemistry; F17.290 Nicotine dependence, other tobacco product, uncomplicated; Z20.822 Contact with and (suspected) exposure to COVID-19; Z86.59 Personal history of other mental and behavioral disorders; Z56.0 Unemployment, unspecified
CPT/HCPCS: 96361 ×3; 96360; 96372; 99285; G0378 ×2; 36415; 80048; 80053; 80306; 82075; 83735; 85025; 87635

== ENCOUNTER 2020-11-26 19:23 | Inpatient (IN) | payer MEDICARE ==
[2020-11-26] MEDS ORDERED: MAG HYDROX/AL HYDROX/SIMETH 30 ML CUP PO PRN (19:28)
[2020-11-26] MEDS ORDERED: MAGNESIUM HYDROXIDE 2,400 MG/10 ML CUP PO PRN (19:28)
[2020-11-26] MEDS ORDERED: LORazepam 1 MG TAB PO PRN (19:28)
[2020-11-26] MEDS ORDERED: ACETAMINOPHEN TAB 325 MG TAB PO PRN (19:28)
[2020-11-26] MEDS ORDERED: LORazepam 2 MG/ML INJ IM PRN (19:31)
[2020-11-26] MEDS ORDERED: haloperidoL 5 MG TAB PO PRN (19:32)
[2020-11-26] MEDS ORDERED: HALOPERIDOL LACTATE 5 MG/ML 1 ML VIAL IM PRN (19:32)
[2020-11-27] MEDS: NICOTINE 14MG/24HR PATCH TRANSDERM SCH (08:06)
--- NOTE | 2020-11-27 12:27 | P.HP ---
Psychiatric H&P - . H&P Date: 11/27/20 History & Physical: Allergies Allergy/AdvReac Type Severity Reaction Status Date / Time No Known Allergies Allergy Verified 11/25/20 14:10 Vital Signs Temp 97.7 F 11/26/20 20:35 Pulse 89 11/26/20 20:35 Resp 20 11/26/20 20:35 BP 176/92 11/26/20 20:35 Pulse Ox Intake & Output 11/26/20 11/27/20 11/27/20 18:59 06:59 18:59 Weight 68.039 kg 11/27/20 12:27 IDENTIFYING DATA: Patient is a , unemployed, 65-year-old -Japanese male admitted for psychosis. HPI: Patient presented to the hospital on 11/25/20, brought in by police due to erratic behavior. The patient reports that he was using multiple substances including cocaine, marijuana, and methamphetamines. The patient was initially supposed to receive Zyprexa 5 mg IM and was to be discharged from the emergency department but he was subsequently admitted to the hospital floor as he continued to display significant disorganized and manic behavior. Upon evaluation on the hospital floor, the patient was nonsensical in his speech was very tangential and pointing at multiple objects throughout the room. He has been noted to be yelling and being labile. Upon presentation to the psychiatric unit, the patient is more calm and cooperative. He continues to be somewhat elevated but is currently denying any suicidal or homicidal ideation, intention, and/or plan. He is denying any auditory or visualizations. He is reporting no paranoia or other delusions. He is expresses that he uses multiple drugs for himself after he has taken care of his daily needs such as food, living, and other expenses. The patient states "when I use, I do not hurt anybody." He does admit to using cocaine and marijuana role together as well as methamphetamines. He states that this is the first time he used meth. PAST PSYCHIATRIC HISTORY: Patient states that he has a history of schizophrenia. The patient is able to recall being previous to prescribe Navane. The patient was most recently on this psychiatric unit in December 2019 and was discharged the following day on Navane. The patient reportedly follows up with [facility]. Patient denies any history of suicide attempts in the past. PMH: Additional Past Medical History / Comment(s): "some kind of mental illness" History of Any Multi-Drug Resistant Organisms: None Reported Past Surgical History: Orthopedic Surgery Additional Past Surgical History / Comment(s): lt knee Past Psychological History: Unable to Obtain, Schizophrenia Smoking Status: Current every day smoker, Vaper Past Alcohol Use History: None Reported Past Drug Use History: Marijuana ALLERGIES: NO KNOWN DRUG ALLERGIES CHEMICAL DEPENDENCY HISTORY: The patient reports he smokes 3-4 sick per day. He denies any alcohol use. He reports he smokes marijuana partly once per month. He reports a history mescaline use in the 70s. He admits to methamphetamine use. He reports his drug of choice is crack cocaine which she often rolls together with his marijuana. FAMILY PSYCHIATRIC/SUBSTANCE USE HISTORY: No reported family psychiatric history SOCIAL HISTORY: Patient was born and raised in [place], [place]. He currently lives in [facility] the patient does have a history of incarceration and spent 10 years in correction for assault. He was released in 2010. Currently he is not on parole or probation. He reports that he has one son and 4 grandchildren.. MENTAL STATUS EXAM: General Appearance: Patient appears to be stated age is alert, directable, and attempts to cooperate. Patient appears to have fair hygiene and grooming. Behavior: Patient is seated without any agitated behavior. Elevated psychomotor activity. Speech: Patient's speech is fluent and nonpressured. Hyperverbal but interruptible. Mood/Affect: Patient reports their mood is feeling okay, affect is expansive. Suicidality/Homicidality: Patient vehemently denies any suicidal or homicidal ideation, intention, and/or plan. Perceptions: Patient denies any visual hallucinations and denies any auditory hallucinations Though content/process: There is no evidence of any delusional thought content and thought process is linear and goal-directed. Memory and concentration: AOX3, grossly intact for the purposes of this session. Can spell "WORLD" backwards Judgment and insight: Fair STRENGTHS/WEAKNESSES: Strength is that the patient has housing, stable income, and is resilient and resourceful. Weakness is that the patient engages in polysubstance abuse. INTELLECT: average IMPRESSIONS: Schizophrenia Polysubstance abuse - crack cocaine, marijuana, methamphetamines Nicotine dependence PLAN: -Patient is admitted under voluntary status to [facility] for stabilization of psychiatric symptoms and safety. Patient signed adult voluntary form and medication consent and is placed in patient's chart. -Medications : Will start patient on Navane 2 mg by mouth 3 times a day for psychosis and mood stabilization -Ativan and Haldol PRN for agitation/aggression -Patient was counselled on substance abuse but appears to be pre-contemplative at this time. -Patient was informed of the risks, benefits and side effects of the medication and patient verbally consented to taking the medications. Patient signed med consent form and was placed in chart. -Internal Medicine consult to perform medical evaluation and physical. -NRT - nicotine patch -SW on board for discharge planning. Encourage patient to participate in groups to work on coping skills. 11/27/20 12:27
[2020-11-27] MEDS: THIOTHIXENE 1 MG CAP PO SCH ×2 (15:14→22:56)
--- NOTE | 2020-11-27 15:34 | P.MDCNMH ---
History of Present Illness H&P Date: 11/27/20 Chief Complaint: Medical evaluation 65-year-old man with a medical history of schizophrenia and polysubstance abuse presented as a petition by the police due to erratic behavior. Patient was using multiple substances including cocaine, marijuana, methamphetamine. Patient was initially on the medical floor then transferred to the behavioral health unit due to ongoing psychosis. Medicine was consulted for medical clearance/evaluation. Patient has no complaints at this time. He denies fevers, chills, nausea, vomiting, chest pain, palpitations, abdominal pain, dysuria, dyschezia, constipation, diarrhea or numbness/weakness. Review of Systems All Systems reviewed and pertinent positives and negatives noted in HPI, all other symptoms are negative Past Medical History Additional Past Medical History / Comment(s): "some kind of mental illness" History of Any Multi-Drug Resistant Organisms: None Reported Past Surgical History: Orthopedic Surgery Additional Past Surgical History / Comment(s): lt knee Past Psychological History: Unable to Obtain, Schizophrenia Smoking Status: Current every day smoker, Vaper Past Alcohol Use History: None Reported Past Drug Use History: Marijuana Medications and Allergies Home Medications Medication Instructions Recorded Confirmed Type Unable To Assess [Unable to Assess] 11/25/20 11/25/20 History Allergies Allergy/AdvReac Type Severity Reaction Status Date / Time No Known Allergies Allergy Verified 11/25/20 14:10 Physical Exam Osteopathic Statement: *. No significant issues noted on an osteopathic structural exam other than those noted in the History and Physical/Consult. Vitals: Vital Signs Temp Pulse Resp BP 11/26/20 20:35 97.7 F 89 20 176/92 Gen: awake, alert HEENT: normocephalic, atraumatic, good hearing acuity, moist mucous membranes Resp: good air exchange, breathing comfortably with no accessory muscle use CVS: good distal perfusion x 4, GI: soft, NTTP, ND : no SPT, no CVAT, wyatt catheter not present MSK: no pitting edema, no clubbing Neuro: non-focal, moving all extremities Psych: cooperative, euthymic mood Cranial Nerve Examination - Cranial Nerves Cranial Nerve I- Olfactory: Intact Cranial Nerve II- Optic: Intact Cranial Nerve III- Oculomotor: Intact Cranial Nerve IV- Trochlear: Intact Cranial Nerve V- Trigeminal: Intact Cranial Nerve - Abducens: Intact Cranial Nerve VII- Facial: Intact Cranial Nerve VIII- Auditory: Intact Cranial Nerve IX- Glossopharyngeal: Intact Cranial Nerve X- Vagus: Intact Cranial Nerve XI- Accessory: Intact Cranial Nerve XII- Hypoglossal: Intact Assessment and Plan Assessment: Hypertension -patient will be started on amlodipine 5mg and lisinopril 10mg -routine BP checks, f/u with medicine if BP > 140 systolic or > 90 diastolic on more than 2 readings in 24 hours for medication titration -BMP check in 1 week Polysubstance abuse Schizophrenia -management per primary team. Medicine will continue to follow along peripherally, please reach out to [facility] if any further questions/concerns.
[2020-11-27] MEDS: lisinopriL 10 MG TAB PO SCH (17:08)
[2020-11-27] MEDS: amLODIPine 5 MG TAB PO SCH (17:09)
[2020-11-28] MEDS: THIOTHIXENE 1 MG CAP PO SCH ×3 (08:22→21:17)
[2020-11-28] MEDS: lisinopriL 10 MG TAB PO SCH (08:22)
[2020-11-28] MEDS: NICOTINE 14MG/24HR PATCH TRANSDERM SCH (08:22)
[2020-11-28] MEDS: amLODIPine 5 MG TAB PO SCH (08:22)
--- NOTE | 2020-11-28 15:31 | P.PN ---
Progress Note - Text Progress Note Date: 11/28/20 Clinical Problems: Schizophrenia, methamphetamine use disorder, marijuana abuse disorder, tobacco use disorder Interim history: I reviewed the medical record and interviewed the patient. 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 He presented to Hospital acutely agitated and disorganized. When he arrived on the psychiatric unit the attending psychiatrist notes that his speech was nonsensical. He was agitated and labile. His UDS was positive for amphetamine, methamphetamine and marijuana. He stated that he "made a mistake" and used some methamphetamine. He was primarily concerned about his living situation and asked assistance in ensuring that he will was his apartment while he is in the hospital. Mental status exam: He presented as a thin, elderly -Cypriot male who was pleasant on approach. He made eye contact and appeared to attend to the interview. He had no prominent physical abnormalities. He had a blunted facial expression. He was alert and oriented to person and place. He showed no abnormality of psychomotor activity activity. He is not agitated or restless. His speech was spontaneous and slightly dysarthric. His affect was blunted but appropriate. He denied suicidal ideation, wishes or homicidal ideation. He denied feeling hopeless, helpless or worthless. He did not express clear ideas reference, paranoid ideation or delusions. His thinking was concrete but his associations were not fully coherent or goal directed. He did not demonstrate perseveration, neologisms or blocking. He denied hallucinations did not appear to be responding to internal stimuli. Assessment: He showed a improvement in his mental status at admission. Plan: Continue inpatient treatment. Tinea safety precautions. Continue Navane 2 mg 3 times a day. Haldol/Ativan when necessary for anxiety, agitation acute psychosis. Norvasc for hypertension and Habitrol for smoking cessation. Encourage participation in therapeutic groups to activities. Evaluate clinical status response to treatment daily basis.
[2020-11-29] MEDS: lisinopriL 10 MG TAB PO SCH (08:41)
[2020-11-29] MEDS: THIOTHIXENE 1 MG CAP PO SCH ×3 (08:41→20:34)
[2020-11-29] MEDS: amLODIPine 5 MG TAB PO SCH (08:41)
[2020-11-29 08:44] VITALS: TEMP 97.2
[2020-11-29] MEDS: NICOTINE 14MG/24HR PATCH TRANSDERM SCH (08:46)
--- NOTE | 2020-11-29 11:21 | P.PN ---
Progress Note - Text Progress Note Date: 11/29/20 Clinical Problems: Schizophrenia, methamphetamine use disorder, marijuana abuse disorder, tobacco use disorder Interim history: I reviewed the medical record and interviewed the patient. He denied problems or concerns other than discharge and returning to his apartment. He spends his time alone in bed seldom interacting with staff or peers. He does not attend therapeutic groups or activities. He is been compliant with prescribed medications including Navane. Mental status exam: He presented as a thin, elderly -Turkmen male who was pleasant on approach. He made eye contact and appeared to attend to the interview. He had no prominent physical abnormalities. He had a blunted facial expression. He was alert and oriented to person and place. He showed no abnormality of psychomotor activity activity. He is not agitated or restless. His speech was spontaneous and slightly dysarthric. His affect was blunted but appropriate. He denied suicidal ideation, wishes or homicidal ideation. He denied feeling hopeless, helpless or worthless. He did not express clear ideas reference, paranoid ideation or delusions. His thinking was concrete but his associations were not fully coherent or goal directed. He did not demonstrate perseveration, neologisms or blocking. He denied hallucinations did not appear to be responding to internal stimuli. Assessment: He is chronically mentally ill and has a recurrent substance abuse problem. Overall his clinical status and improve from admission. Plan: Continue inpatient treatment. Safety precautions. Consider discharge on 11/30/2020. Continue Navane 2 mg 3 times a day. Haldol/Ativan when necessary for anxiety, agitation acute psychosis. Norvasc for hypertension and Habitrol for smoking cessation. Encourage participation in therapeutic groups to activities. Evaluate clinical status response to treatment daily basis.
[2020-11-30] MEDS: amLODIPine 5 MG TAB PO SCH (08:22)
[2020-11-30] MEDS: NICOTINE 14MG/24HR PATCH TRANSDERM SCH (08:22)
[2020-11-30] MEDS: lisinopriL 10 MG TAB PO SCH (08:22)
[2020-11-30] MEDS: THIOTHIXENE 1 MG CAP PO SCH ×2 (08:23→16:53)
[2020-11-30 09:51] VITALS: BP 122/80; PULSE 59; RESP 16
--- NOTE | 2020-11-30 10:23 | P.DS ---
Providers Date of admission: 11/26/20 19:23 Expected date of discharge: 11/30/20 Attending physician: Leonardo Kelly MD Consults: 11/26/20 19:28 Consult Physician Routine Consulting Provider: Carloz Romero Consult Reason/Comments: History and physical Do you want consulting provider notified?: Yes Primary care physician: Stated None - Discharge Diagnosis(es) (1) Schizophrenia in partial remission with history of multiple episodes Current Visit: Yes Status: Acute Priority: High (2) Cannabis abuse Current Visit: Yes Status: Chronic Priority: Medium (3) Cocaine abuse Current Visit: Yes Status: Chronic Priority: Medium (4) Methamphetamine abuse Current Visit: Yes Status: Chronic Priority: Medium (5) Tobacco use disorder Current Visit: Yes Status: Chronic Priority: Medium Hospital Course: Admission HPI: Patient is a , unemployed, 65-year-old -Lao male admitted for psychosis. Patient presented to the hospital on 11/25/20, brought in by police due to erratic behavior. The patient reports that he was using multiple substances i ncluding cocaine, marijuana, and methamphetamines. The patient was initially supposed to receive Zyprexa 5 mg IM and was to be discharged from the emergency department but he was subsequently admitted to the hospital floor as he continued to display significant disorganized and manic behavior. Upon evaluation on the hospital floor, the patient was nonsensical in his speech was very tangential and pointing at multiple objects throughout the room. He has been noted to be yelling and being labile. Upon presentation to the psychiatric unit, the patient is more calm and cooperative. He continues to be somewhat elevated but is currently denying any suicidal or homicidal ideation, intention, and/or plan. He is denying any auditory or visualizations. He is reporting no paranoia or other delusions. He is expresses that he uses multiple drugs for himself after he has taken care of his daily needs such as food, living, and other expenses. The patient states "when I use, I do not hurt anybody." He does admit to using cocaine and marijuana role together as well as methamphetamines. He states that this is the first time he used meth. Patient states that he has a history of schizophrenia. The patient is able to recall being previous to prescribe Navane. The patient was most recently on this psychiatric unit in December 2019 and was discharged the following day on Navane. The patient reportedly follows up with [facility]. Patient denies any history of suicide attempts in the past. Hospital course: Upon admission to the unit, the patient continued to be somewhat elevated, difficult to direct, intrusive, displaying significant psychomotor agitation. The patient was however directable and agreeable to commence treatment. The patient wished to be placed back on his prescribed Navane. The course of the hospitalization, the patient displayed significant improvement in regards to his psychosis. He became more adherent and compliant with treatment, more directable, and tolerated the medications well. He became more future oriented. The patient was counseled at great length during this hospitalization to avoid substances. On the day of discharge, the patient for any suicidal or homicidal ideation, intention, and/or plan. He is not reporting any auditory or visualizations. He is denying any paranoia or other delusions. He denies any firearms or other weapons. The patient was counseled at great length on avoiding all substances, especially cocaine, amphetamines, marijuana, and other substances. The patient expresses that he is done with hard drugs and will stick with marijuana. Patient remains pre-contemplative on his substance abuse. The patient was offered an option to be referred to inpatient substance abuse rehabilitation, but refused. The patient was counseled on his medications and need for regular compliance and was encouraged to follow-up with his outpatient appointments for mental health and for primary care. Prior to discharge, family meeting will be arranged by high school social science teacher to answer any questions and ensure safety. Mental status exam: General Appearance: Patient appears to be stated age is alert, pleasant, and cooperative. Patient is in no acute distress and has fair hygiene and grooming. Behavior: Patient is calmly seated without any agitated behavior. Eye contact is appropriate. Psychomotor activity normal. Speech: Patient's speech is fluent and nonpressured. Mood/Affect: Patient reports their mood is "much better", affect is congruent and euthymic. Suicidality/Homicidality: The patient denies any suicidal or homicidal ideation, intention, and/or plan. Perceptions: Patient denies any auditory or visual hallucinations. Though content/process: There is no evidence of any delusional thought content and thought process is linear and goal-directed. The patient is future oriented. Memory and concentration: AOX3, grossly intact for the purposes of this session. Can spell "WORLD" backwards correctly. Judgment and insight: Improved with guarded prognosis Vital Signs Temp 97.2 F L 11/29/20 08:40 Pulse 59 L 11/30/20 08:00 Resp 16 11/30/20 08:00 BP 122/80 11/30/20 08:00 Pulse Ox Impression: Schizophrenia Polysubstance abuse - crack cocaine, marijuana, methamphetamines Nicotine dependence Plan: -Continue with discharge today as patient has improved and stabilized psychiatrically and is not currently an imminent threat to himself and/or others. Patient will remain at chronically elevated risk for harm to self and/or others due to his impulsivity and polysubstance abuse. -Continue medications: Navane 2 mg by mouth 3 times a day for psychosis and mood stabilization Habitrol patches for nicotine cessation -Patient was counseled on the need for medication compliance and appropriate follow-up at mental health and also primary care for medical issues. Patient verbalized understanding and agreed. -Social work to arrange for and conduct family meeting to ensure safety upon discharge and answer any questions/concerns. Social work also to arrange for patients follow up appointments for psychiatric care along with follow up with primary care provider. -Patient counseled on abstaining from recreational drugs and marijuana and alcohol. Was informed/educated on the adverse effects on their physical and mental health. Patient verbally agreed and understood. Patient was offered substance abuse treatment however declined at this time. -Patient was instructed to return to the hospital or seek immediate medical care if their psychiatric or medical symptoms do worsen or reoccur. -Psychoeducation and supportive therapy provided to patient. Risks and benefits of pharmacological treatment versus the risks and benefits of nontreatment weigh t and discussed. Informed consent discussion held. Common side effects of psychotropics discussed such as, but not limited to headache, GI disturbance, sexual dysfunction, movement disorders, sedation, and orthostatic hypotension. Life threatening and blackbox warnings of prescribed medications also discussed. Potential risks of operating a vehicle or heavy machinery discussed with patient at length. Advised on importance of compliance and a reliable and responsible manner. Patient advised to review FDA consumer labeling of all medications prior to taking. Patient verbalized understanding of potential risks, and agrees with current treatment plan. Patient advised to medically contact physician/emergency personnel if any acute changes in condition occur. -Please refer to his medical admission on 11/25/2020 for his lab results. Allergies Allergy/AdvReac Type Severity Reaction Status Date / Time No Known Allergies Allergy Verified 11/27/20 16:36 Patient Condition at Discharge: Stable Plan - Discharge Summary Discharge Rx Participant: No New Discharge Prescriptions: New amLODIPine [Norvasc] 5 mg PO DAILY 30 Days tab lisinopriL [Zestril] 10 mg PO DAILY 30 Days tab Thiothixene [Navane] 2 mg PO TID 30 Days cap Discharge Medication List Thiothixene [Navane] 2 mg PO TID 30 Days cap 11/30/20 [Rx] amLODIPine [Norvasc] 5 mg PO DAILY 30 Days tab 11/30/20 [Rx] lisinopriL [Zestril] 10 mg PO DAILY 30 Days tab 11/30/20 [Rx] Activity/Diet/Wound Care/Special Instructions: Activity and diet as tolerated. Avoid the use of street drugs and alcohol. Take all medications as prescribed. When you are in need of refills on your medications please contact your medical provider and/or outpatient psychiatrist to have this done. Please go to scheduled outpatient appointment for aftercare treatment. If symptoms return or become worse, call the crisis line at and/or go to the nearest emergency room for evaluation. Discharge Disposition: HOME SELF-CARE
== END 2020-11-30 17:43 | disposition home or self-care (01) | DRG 885 ==
LOC: 3MHU 19:23
PROVIDERS: ADMIT Psychiatry & Neurology Psychiatry; ATTEND Psychiatry & Neurology Psychiatry
DX: F20.9 Schizophrenia, unspecified (principal); F12.19 Cannabis abuse with unspecified cannabis-induced disorder; F14.10 Cocaine abuse, uncomplicated; F15.10 Other stimulant abuse, uncomplicated; F17.200 Nicotine dependence, unspecified, uncomplicated
CPT/HCPCS: 36415; 80048; 80053; 80306; 82075; 83735; 85025; 87635

== ENCOUNTER 2021-04-08 14:11 | Inpatient (IN) | payer MEDICARE ==
[2021-04-08] MEDS ORDERED: HALOPERIDOL LACTATE 5 MG/ML 1 ML VIAL IM PRN (15:46)
[2021-04-08] MEDS ORDERED: LORazepam 2 MG/ML INJ IM PRN (15:46)
[2021-04-08] MEDS ORDERED: HALOPERIDOL LACTATE 5 MG/ML 1 ML VIAL IVP STA (15:59)
[2021-04-08] MEDS ORDERED: LORazepam 2 MG/ML INJ IV STA ×2 (16:00→22:25)
[2021-04-08 16:06] LABS: Basophils % (A) 0 %; Eosinophils # (A) 0.1 k/uL (0-0.7); Eosinophils % (A) 1 %; HCT 48.9 % (39.0-53.0); HGB 15.9 gm/dL (13.0-17.5); Lymphocytes # (A) 1.7 k/uL (1.0-4.8); Lymphocytes % (A) 18 %; MCH 32.5 pg (25.0-35.0); MCHC 32.6 g/dL (31.0-37.0); MCV 99.7 fL (80.0-100.0); Mean Platelet Volume 8.9; Monocytes # (A) 0.6 k/uL (0-1.0); Monocytes % (A) 6 %; Neutrophils # (A) 7.1 k/uL (1.3-7.7); Neutrophils % (A) 73 %; Platelet Count 190 k/uL (150-450); RBC 4.91 m/uL (4.30-5.90); WBC 9.9 k/uL (3.8-10.6)
[2021-04-08 16:24] LABS: African American GFR (CKD) 75 (>60 ml/min/1.73 sqM); Alcohol <10 mg/dL; Anion Gap 12 mmol/L; Blood Urea Nitrogen 21 mg/dL (9-20); Calcium 10.2 mg/dL (8.4-10.2); Carbon Dioxide 27 mmol/L (22-30); Chloride 101 mmol/L (98-107); Glucose 143 mg/dL (74-99); Magnesium 1.9 mg/dL (1.6-2.3); Non-African American GFR(CKD) 65 (>60 ml/min/1.73 sqM); Potassium 3.5 mmol/L (3.5-5.1); Sodium 140 mmol/L (137-145)
--- NOTE | 2021-04-08 19:00 | ED ---
General Adult HPI - General Chief complaint: Psychiatric Symptoms Stated complaint: Petition Time Seen by Provider: 04/08/21 15:09 Source: police, RN notes reviewed, old records reviewed Mode of arrival: ambulatory Limitations: altered mental status - History of Present Illness Initial comments: I evaluated the patient when he was placed in a room.Patient is a 66-year-old male with past medical history remarkable for schizophrenia who presents emergen cy department after being petitioned by police. Patient was found running into traffic without looking, threatening others, and randomly falling backwards onto the ground. He is brought to the emergency department by police for petitioned and psychiatric evaluation. Patient appears to be responding to internal stimuli when I speak with him. He is unable and unwilling to discuss anything with me. He keeps accusing me of not being from the state. He keeps asking where I am from. He refuses to answer my questions. He is ambulatory without difficulty. He is acting threateningly towards myself. Patient presents for a psychiatric evaluation. - Related Data Home Medications Medication Instructions Recorded Confirmed Unable To Assess [Unable to Assess] 04/08/21 04/08/21 Allergies Allergy/AdvReac Type Severity Reaction Status Date / Time No Known Allergies Allergy Verified 04/08/21 14:15 Review of Systems ROS Statement: Those systems with pertinent positive or pertinent negative responses have been documented in the HPI. Patient is unwilling to answer questions. ROS Other: All systems not noted in ROS Statement are negative. Past Medical History Past Medical History: Unable to Obtain History of Any Multi-Drug Resistant Organisms: Unobtainable Past Surgical History: Unable to Obtain Past Psychological History: Unable to Obtain Smoking Status: Unknown if ever smoked Past Alcohol Use History: Unable to Obtain Past Drug Use History: Unable to Obtain General Exam - General Exam Comments Initial Comments: General: Appears agitated, and appears to be responding to internal stimuli. HEAD: Normal with no signs of head trauma. EYES: PERRLA, EOMI, conjunctiva normal, no discharge. ENT: Hearing grossly intact, normal oropharynx. RESPIRATORY: Clear breath sounds bilaterally. No wheezes, rales, or rhonchi. C/V: Regular rate and rhythm. S1 and S2 auscultated, no edema, peripheral pulses 2+ and intact throughout ABD: Abd is soft, nontender, nondistended EXT: Normal range of motion, no obvious deformity SKIN: No rashes or lesions observed on exposed skin. NEURO: Alert and oriented 3-4. Patient is ambulating without any obvious focal deficits. Limitations: altered mental status Course Vital Signs 04/08/21 04/08/21 04/09/21 14:12 16:34 00:24 Temperature 98.2 F 98 F Pulse Rate 79 70 77 Respiratory 22 18 20 Rate Blood Pressure 202/118 133/82 129/79 O2 Sat by Pulse 95 98 97 Oximetry Medical Decision Making - Medical Decision Making Based on the patient's presentation and physical exam, I do believe that he requires psychiatric evaluation. However he is extremely agitated at this time. Patient will be administered Ativan and Haldol for agitation, as I believe he is a danger to staff as he is occasionally making threatening gestures and screaming. He is not cooperating. Patient responded well to medications. He'll let us to obtain an IV and a screening EKG. Basic labs will be sent. This includes alcohol and UDS. I do not believe that he requires any imaging at this time. Patient's screening EKG shows normal sinus rhythm with no signs of acute ischemia. Laboratory studies are within normal limits and unremarkable. ETOH level is 0. On reevaluation come patient's hypertension has resolved, blood pressure 133/82 down from 202/118 when he presented and was agitated. I believe it is safe for him to be evaluated by psychiatry at this time. Patient is medically cleared for evaluation by psychiatry. Disposition is pending psychiatric evaluation. Patient was evaluated by psychiatry. They determined that he needs inpatient psychiatric criteria. They repeat dictation the patient. Certainly was completed by myself. Covid swab was ordered. Patient will be admitted to inpatient psychiatry in stable condition. - Lab Data Result diagrams: 04/08/21 15:58 04/08/21 15:58 Lab Results 04/08/21 04/08/21 04/08/21 Range/Units 15:58 15:58 21:37 WBC 9.9 (3.8-10.6) k/uL RBC 4.91 (4.30-5.90) m/uL Hgb 15.9 (13.0-17.5) gm/dL Hct 48.9 (39.0-53.0) % MCV 99.7 (80.0-100.0) fL MCH 32.5 (25.0-35.0) pg MCHC 32.6 (31.0-37.0) g/dL RDW 13.0 (11.5-15.5) % Plt Count 190 (150-450) k/uL MPV 8.9 Neutrophils % 73 % Lymphocytes % 18 % Monocytes % 6 % Eosinophils % 1 % Basophils % 0 % Neutrophils # 7.1 (1.3-7.7) k/uL Lymphocytes # 1.7 (1.0-4.8) k/uL Monocytes # 0.6 (0-1.0) k/uL Eosinophils # 0.1 (0-0.7) k/uL Basophils # 0.0 (0-0.2) k/uL Sodium 140 (137-145) mmol/L Potassium 3.5 (3.5-5.1) mmol/L Chloride 101 (98-107) mmol/L Carbon Dioxide 27 (22-30) mmol/L Anion Gap 12 mmol/L BUN 21 H (9-20) mg/dL Creatinine 1.16 (0.66-1.25) mg/dL Est GFR (CKD-EPI)AfAm 75 (>60 ml/min/1.73 sqM) Est GFR (CKD-EPI)NonAf 65 (>60 ml/min/1.73 sqM) Glucose 143 H (74-99) mg/dL Calcium 10.2 (8.4-10.2) mg/dL Magnesium 1.9 (1.6-2.3) mg/dL Urine Opiates Screen Not Detected (NotDetected) Ur Oxycodone Screen Not Detected (NotDetected) Urine Methadone Screen Not Detected (NotDetected) Ur Propoxyphene Screen Not Detected (NotDetected) Ur Barbiturates Screen Not Detected (NotDetected) U Tricyclic Antidepress Not Detected (NotDetected) Ur Phencyclidine Scrn Not Detected (NotDetected) Ur Amphetamines Screen Detected H (NotDetected) U Methamphetamines Scrn Detected H (NotDetected) U Benzodiazepines Scrn Detected H (NotDetected) Urine Cocaine Screen Detected H (NotDetected) U Marijuana (THC) Screen Detected H (NotDetected) Serum Alcohol <10 mg/dL Coronavirus (PCR) (Not Detectd) 04/08/21 Range/Units 23:16 WBC (3.8-10.6) k/uL RBC (4.30-5.90) m/uL Hgb (13.0-17.5) gm/dL Hct (39.0-53.0) % MCV (80.0-100.0) fL MCH (25.0-35.0) pg MCHC (31.0-37.0) g/dL RDW (11.5-15.5) % Plt Count (150-450) k/uL MPV Neutrophils % % Lymphocytes % % Monocytes % % Eosinophils % % Basophils % % Neutrophils # (1.3-7.7) k/uL Lymphocytes # (1.0-4.8) k/uL Monocytes # (0-1.0) k/uL Eosinophils # (0-0.7) k/uL Basophils # (0-0.2) k/uL Sodium (137-145) mmol/L Potassium (3.5-5.1) mmol/L Chloride (98-107) mmol/L Carbon Dioxide (22-30) mmol/L Anion Gap mmol/L BUN (9-20) mg/dL Creatinine (0.66-1.25) mg/dL Est GFR (CKD-EPI)AfAm (>60 ml/min/1.73 sqM) Est GFR (CKD-EPI)NonAf (>60 ml/min/1.73 sqM) Glucose (74-99) mg/dL Calcium (8.4-10.2) mg/dL Magnesium (1.6-2.3) mg/dL Urine Opiates Screen (NotDetected) Ur Oxycodone Screen (NotDetected) Urine Methadone Screen (NotDetected) Ur Propoxyphene Screen (NotDetected) Ur Barbiturates Screen (NotDetected) U Tricyclic Antidepress (NotDetected) Ur Phencyclidine Scrn (NotDetected) Ur Amphetamines Screen (NotDetected) U Methamphetamines Scrn (NotDetected) U Benzodiazepines Scrn (NotDetected) Urine Cocaine Screen (NotDetected) U Marijuana (THC) Screen (NotDetected) Serum Alcohol mg/dL Coronavirus (PCR) Not Detected (Not Detectd) - EKG Data -: EKG Interpreted by Me EKG Comments: 12-lead Electrocardiogram Interpretation Note EKG was reviewed and interpreted by myself. 12-lead ECG performed at 1602 is interpreted by me as revealing normal sinus rhythm at a rate of 82 beats per minute. [place] is normal. [place] interval is 132 ms, QRS duration is 96 ms, QTc is 495 ms.. There were no ST or T wave abnormalities to suggest myocardial ischemia or injury. R wave progression across the precordium was satisfactory. By my interpretation this EKG is non-diagnostic for acute ischemia. Disposition Clinical Impression: Encounter for psychiatric assessment, Schizophrenia, Acute psychosis Disposition: ADMITTED IP TO THIS HOSP Condition: Stable
[2021-04-08 22:14] LABS: Amphetamine Screen,Urine Detected (NotDetected); Barbiturate Screen,Urine Not Detected (NotDetected); Benzodiazepines Screen,Urine Detected (NotDetected); Cocaine Screen,Urine Detected (NotDetected); Methadone Screen, Urine Not Detected (NotDetected); Opiate Screen,Urine Not Detected (NotDetected); Oxycodone Screen, Urine Not Detected (NotDetected); Phencyclidine Screen,Urine Not Detected (NotDetected); Tricyclic Antidepressant,Urine Not Detected (NotDetected); Urn Cannabinoid Scrn Detected (NotDetected)
[2021-04-08] MEDS ORDERED: HALOPERIDOL LACTATE 5 MG/ML 1 ML VIAL IM STA (23:03)
[2021-04-09] MEDS ORDERED: MAG HYDROX/AL HYDROX/SIMETH 30 ML CUP PO PRN (00:33)
[2021-04-09] MEDS ORDERED: ACETAMINOPHEN TAB 325 MG TAB PO PRN (00:33)
[2021-04-09] MEDS ORDERED: MAGNESIUM HYDROXIDE 2,400 MG/10 ML CUP PO PRN (00:33)
[2021-04-09] MEDS ORDERED: LORazepam 2 MG/ML INJ IM PRN (00:36)
[2021-04-09] MEDS ORDERED: HALOPERIDOL LACTATE 5 MG/ML 1 ML VIAL IM PRN (00:37)
[2021-04-09 01:48] LABS: Appearance,Urine Clear (Clear); Bilirubin,Urine Negative (Negative); Blood,Urine Trace (Negative); Color,Urine Yellow; Glucose,Urine (UA) Negative (Negative); Ketones,Urine 1+ (Negative); Leukocyte Esterase,Urine Negative (Negative); Mucus,Urine Rare /hpf; Nitrite,Urine Negative (Negative); PH, Urine 5.5 (5.0-8.0); Protein,Urine Trace (Negative); RBC,Urine 2 /hpf (0-5); Squamous Epithelial Cell,Urine <1 /hpf (0-4); WBC,Urine 1 /hpf (0-5)
[2021-04-09] MEDS: NICOTINE 14MG/24HR PATCH TRANSDERM SCH (09:33)
[2021-04-09] MEDS: amLODIPine 5 MG TAB PO SCH (09:33)
[2021-04-09] MEDS: lisinopriL 10 MG TAB PO SCH (09:34)
[2021-04-09 09:52] VITALS: RESP 16
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
[2021-04-09] MEDS: THIOTHIXENE 1 MG CAP PO SCH ×2 (15:25→21:09)
[2021-04-09] MEDS: LORazepam 1 MG TAB PO PRN (21:09)
--- NOTE | 2021-04-09 21:55 | P.PN ---
Progress Note - Text Progress Note Date: 04/09/21 Attempted to see the patient in the MHU. He was posturing, verbally aggressive, actively psychotic and not directable. Will attempt again tomorrow.
[2021-04-10] MEDS: amLODIPine 5 MG TAB PO SCH (08:03)
[2021-04-10] MEDS: THIOTHIXENE 1 MG CAP PO SCH ×3 (08:03→21:04)
[2021-04-10] MEDS: lisinopriL 10 MG TAB PO SCH (08:03)
[2021-04-10] MEDS: NICOTINE 14MG/24HR PATCH TRANSDERM SCH (08:03)
--- NOTE | 2021-04-10 13:20 | P.PN ---
Progress Note - Text Progress Note Date: 04/10/21 Interval history: Patient was seen resting in bed and was directable and agreeable to speak with marketing underwriter. The patient is reporting that he is feeling much better. He is currently not reporting any auditory hallucinations. He is denying any paranoia or delusions. He has been adherent with his medications and is not endorsing any significant side effects at this time. He questioned why he was started on blood pressure medications however was directable and agreeable to take the medication if his blood pressure was high. He still states that he prefers not to take any extra medication aside from his Navane. He is denying any issues regarding his sleep or his appetite. Mental status exam: General Appearance: Patient appears to be stated age is alert, directable, and cooperative. Behavior: No agitated behavior. Patient is calm and directable Speech: Patient's speech is fluent and nonpressured. Mood/Affect: Mood is improving mildly, affect is congruent and constricted. Suicidality/Homicidality: Patient denies having any suicidal or homicidal ideation intent or plan. Perceptions: Patient denies any auditory or visual hallucinations. Though content/process: There is no evidence of any delusional thought content and thought process is linear and goal-directed. Memory and concentration: AOX3, grossly intact for the purposes of this session Judgment and insight: improving mildly Assessment/Plan: Continue with current diagnosis. Patient continues to meet criteria for inpatient psychiatric admission for symptom stabilization and safety.Patient will be maintained on current psychotropic medication regimen. Monitor for medication compliance and for any psychotropic medication side effects. Will continue to monitor ongoing response to treatment. Encouraged participation in milieu.
[2021-04-10 18:01] LABS: Chol/HDL Ratio 2.74 Ratio; HDL Cholesterol 61.4 mg/dL (40.00-60.00)
[2021-04-10 18:22] LABS: Triglycerides 46.8 mg/dL (0.00-149.00)
[2021-04-10] MEDS: LORazepam 1 MG TAB PO PRN (21:07)
--- NOTE | 2021-04-10 23:09 | P.CONS ---
History of Present Illness - Reason for Consult Consult date: 04/10/21 - History of Present Illness The patient is a 66-year-old male with a PMH of schizophrenia, hypertension and polysubstance abuse who presented to the emergency room under police custody due to erratic behavior. The patient was actively psychotic in the emergency room and was thereby admitted to the mental health unit where he was seen and evaluated. The patient was somewhat paranoid at time of interview and noted that he is chewing on paper as a way to prevent others from biting him. He denied any physical complaints hour. He denied chest discomfort, shortness of breath, fever, chills, cough, nausea, vomiting, abdominal pain. Urine tox serology was positive for multiple substances including cocaine, methamphe tamines, marijuana, and benzodiazepines. EKG from the emergency room revealed voltage criteria for LVH along with prolonged QT at 82 bpm. Review of systems: Pertinent positives and negatives as discussed in HPI, a complete review of systems was performed and all other systems are negative. Physical examination: General: non toxic, no distress, appears at stated age, normal weight Derm: no unusual rashes/lesions no unusual ecchymoses, warm, dry Head: atraumatic, normocephalic, symmetric Eyes: EOMI, no lid lag, anicteric sclera, pupils equal round reactive to light ENT: Nose and ears atraumatic, no thrush, no pharyngeal erythema Neck: No thyromegaly, no cervical lymphadenopathy, trachea midline, supple Mouth: no lip lesion, mucus membranes moist Cardiovascular: S1S2 reg, no murmur, positive posterior tibial pulse bilateral, no edema, capillary refill less than 2 seconds Lungs: CTA bilateral, no rhonchi, no rales , no accessory muscle use Abdominal: soft, nontender to palpation, no guarding, no appreciable organomegaly, normal bowel sounds Ext: no gross muscle atrophy, muscle strength 5 out of 5 in all 4 extremities grossly, no contractures, Neuro: CN II-XI grossly intact, light touch intact all 4 extremities, finger to nose within normal limits, Psych: Alert, oriented, guarded affect, paranoid and tangential thought process Assessment/plan Prolonged QT -Avoid further prolonging agents Hypertension -Continue with Norvasc and lisinopril Psychosis -As per psychiatry Past Medical History Past Medical History: Hypertension Additional Past Medical History / Comment(s): "some kind of mental illness" History of Any Multi-Drug Resistant Organisms: Unobtainable Past Surgical History: Unable to Obtain Additional Past Surgical History / Comment(s): lt knee Past Psychological History: Unable to Obtain Smoking Status: Current every day smoker Past Alcohol Use History: Unable to Obtain Past Drug Use History: Cocaine, Marijuana, Methamphetamine - Past Family History Father Family Medical History: Unable to Obtain (Patient refused to provide family history) Medications and Allergies Home Medications Medication Instructions Recorded Confirmed Type Thiothixene [Navane] 2 mg PO TID 30 Days cap 11/30/20 Rx amLODIPine [Norvasc] 5 mg PO DAILY 30 Days tab 11/30/20 Rx lisinopriL [Zestril] 10 mg PO DAILY 30 Days tab 11/30/20 Rx Unable To Assess [Unable to Assess] 04/08/21 04/09/21 History Allergies Allergy/AdvReac Type Severity Reaction Status Date / Time No Known Allergies Allergy Verified 04/09/21 10:28 Physical Exam Vitals: Vital Signs Pulse BP 04/10/21 09:15 72 121/64 Results CBC & Chem 7: 04/08/21 15:58 04/08/21 15:58 Labs: Abnormal Lab Results - Last 24 Hours (Table) 04/10/21 Range/Units 08:08 HDL Cholesterol 61.40 H (40.00-60.00) mg/dL
[2021-04-11] MEDS: NICOTINE 14MG/24HR PATCH TRANSDERM SCH (09:02)
[2021-04-11] MEDS: amLODIPine 5 MG TAB PO SCH (09:03)
[2021-04-11] MEDS: THIOTHIXENE 1 MG CAP PO SCH ×3 (09:03→21:04)
[2021-04-11] MEDS: lisinopriL 10 MG TAB PO SCH (09:04)
--- NOTE | 2021-04-11 10:59 | P.PN ---
Progress Note - Text Progress Note Date: 04/11/21 Interval history: Patient was seen resting in bed and was directable and agreeable to speak with business writer. The patient reports he is doing well. He is currently not reporting any suicidal or homicidal ideation, intention, and/or plan. He reports no auditory or visual hallucinations. He denies any paranoia or other delusions. He reports he would like to be discharged tomorrow. He has been adherent with his medications and is not endorsing any significant side effects at this time. He does acknowledge his drug use and states he will try to quit. He is not interested in rehab. Mental status exam: General Appearance: Patient appears to be stated age is alert, directable, and cooperative. Behavior: No agitated behavior. Patient is calm and directable Speech: Patient's speech is fluent and nonpressured. Mood/Affect: Mood is improving mildly, affect is congruent and constricted. Suicidality/Homicidality: Patient denies having any suicidal or homicidal ideation intent or plan. Perceptions: Patient denies any auditory or visual hallucinations. Though content/process: There is no evidence of any delusional thought content and thought process is linear and goal-directed. Memory and concentration: AOX3, grossly intact for the purposes of this session Judgment and insight: improving mildly Assessment/Plan: Continue with current diagnosis. Patient continues to meet criteria for inpatient psychiatric admission for symptom stabilization and safety.Patient will be maintained on current psychotropic medication regimen. Monitor for medication compliance and for any psychotropic medication side effects. Will continue to monitor ongoing response to treatment. Encouraged participation in milieu.
[2021-04-12 07:11] VITALS: TEMP 97.3
[2021-04-12] MEDS: NICOTINE 14MG/24HR PATCH TRANSDERM SCH (07:59)
[2021-04-12] MEDS: THIOTHIXENE 1 MG CAP PO SCH (08:00)
[2021-04-12 08:10] VITALS: BP 121/86
[2021-04-12] MEDS: amLODIPine 5 MG TAB PO SCH (08:16)
[2021-04-12] MEDS: lisinopriL 10 MG TAB PO SCH (08:16)
[2021-04-12 08:17] VITALS: PULSE 78
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
== END 2021-04-12 12:18 | disposition home or self-care (01) | DRG 885 ==
LOC: EDBD → EC 14:11 → MERGE 04-09 00:20 → 3MHU 04-09 00:20
PROVIDERS: ADMIT Psychiatry & Neurology Psychiatry; ATTEND Psychiatry & Neurology Psychiatry
DX: F20.9 Schizophrenia, unspecified (principal); F12.10 Cannabis abuse, uncomplicated; F14.10 Cocaine abuse, uncomplicated; F15.159 Other stimulant abuse with stimulant-induced psychotic disorder, unspecified; F17.210 Nicotine dependence, cigarettes, uncomplicated; I10 Essential (primary) hypertension; Z20.822 Contact with and (suspected) exposure to COVID-19; Z79.899 Other long term (current) drug therapy
CPT/HCPCS: 36415; 80048; 80061; 80306; 80320; 81001; 83036; 83735; 84443; 85025; 87635; 93005; 96372; 96374; 96375; 96376; 99285

== ENCOUNTER 2022-02-28 17:39 | Inpatient (IN) | payer MEDICARE, OTHER ==
[2022-02-28] MEDS ORDERED: KETOROLAC 15 MG/ML 1 ML VIAL IVP STA (18:52)
[2022-02-28 19:27] LABS: Basophils % (A) 0 %; Eosinophils # (A) 0.2 k/uL (0-0.7); Eosinophils % (A) 3 %; HCT 49.5 % (39.0-53.0); HGB 16.2 gm/dL (13.0-17.5); Lymphocytes # (A) 1.8 k/uL (1.0-4.8); Lymphocytes % (A) 24 %; MCHC 32.7 g/dL (31.0-37.0); MCV 95.1 fL (80.0-100.0); Mean Platelet Volume 10.5; Monocytes # (A) 0.4 k/uL (0-1.0); Monocytes % (A) 6 %; Neutrophils # (A) 4.8 k/uL (1.3-7.7); Neutrophils % (A) 65 %; Platelet Count 148 k/uL (150-450); RDW 13.6 % (11.5-15.5); WBC 7.5 k/uL (3.8-10.6)
[2022-02-28 19:36] LABS: Calcium 9.4 mg/dL (8.4-10.2)
--- NOTE | 2022-02-28 19:38 | XR ---
EXAMINATION TYPE: XR chest 1V portable DATE OF EXAM: 02/28/2022 COMPARISON: 02/19/2018 HISTORY: Cough TECHNIQUE: FINDINGS: There is no heart failure nor confluent pneumonic infiltrate. Costophrenic angles are clear . There are no hilar masses. Bony thorax is intact. IMPRESSION: No active cardiopulmonary disease. Normal heart
--- NOTE | 2022-02-28 20:14 | ED ---
General Adult HPI - General Chief complaint: Psychiatric Symptoms Stated complaint: petition Time Seen by Provider: 02/28/22 18:04 Source: patient, RN notes reviewed, old records reviewed Mode of arrival: ambulatory Limitations: no limitations - History of Present Illness Initial comments: Patient is a 66-year-old male with past medical history remarkable for psychiatric illness, polysubstance abuse presents emergency Department for psychiatric evaluation. Patient was petitioned by police. The patient states "Hans was acting erratic while talking with officers and staff. Hans' behavior is hot/cold acting out at times and being aggressive towards officers. Hans has been talking to objects/sparks all day. He is constantly yelling for no reas on and threatening staff as well as at [facility]." When I speak with the patient, he doesn't endorse being agitated earlier but is currently calm. He is cooperative. Denies suicidal or homicidal ideations, attempts, plans. Denies visual or auditory hallucinations. States he has been compliant with me dications. He is complaining of a mild headache. Describes it as a point tenderness located over the left posterior neck. No trauma. Also endorses a mild cough. Unknown if there are sick contacts where he stays. Presents for psychiatric evaluation at this time. - Related Data Home Medications Medication Instructions Recorded Confirmed Thiothixene [Navane] 2 mg PO HS@2100 02/28/22 02/28/22 Allergies Allergy/AdvReac Type Severity Reaction Status Date / Time No Known Allergies Allergy Verified 02/28/22 21:44 Review of Systems ROS Statement: Those systems with pertinent positive or pertinent negative responses have been documented in the HPI. Review of Systems: CONST: Denies fever EYES: Denies blurry vision ENT: Denies nasal congestion C/V: Denies Chest pain RESP: Endorses cough GI: Denies abdominal pain : Denies dysuria SKIN: Denies rash. MSK: Denies joint pain. NEURO: Endorses headache PSYCH: Denies suicidal and homicidal ideations/plans/attempts. Denies visual or auditory hallucinations. ROS Other: All systems not noted in ROS Statement are negative. Past Medical History Past Medical History: Hypertension Additional Past Medical History / Comment(s): "some kind of mental illness" History of Any Multi-Drug Resistant Organisms: None Reported, Unobtainable Past Surgical History: Orthopedic Surgery, Unable to Obtain Additional Past Surgical History / Comment(s): lt knee Past Psychological History: Schizophrenia, Unable to Obtain Smoking Status: Current every day smoker Past Alcohol Use History: None Reported, Unable to Obtain Past Drug Use History: Cocaine, Marijuana - Past Family History Father Family Medical History: Unable to Obtain (Patient refused to provide family history) General Exam - General Exam Comments Initial Comments: General: Appears in no acute distress. HEAD: Normal with no signs of head trauma. EYES: PERRLA, EOMI, conjunctiva normal, no discharge. Pupils are 2 mm and equal bilaterally. ENT: Hearing grossly intact, normal oropharynx. RESPIRATORY: Clear breath sounds bilaterally. No wheezes, rales, or rhonchi. No hypoxia. No increased work of breathing. C/V: Regular rate and rhythm. S1 and S2 auscultated, no edema, peripheral pulses 2+ and intact throughout ABD: Abd is soft, nontender, nondistended EXT: Normal range of motion, no obvious deformity. No midline tenderness to palpation of the cervical, thoracic, lumbar spines. Some point tenderness located over the left trapezius muscle. SKIN: No rashes or lesions observed on exposed skin. NEURO: Alert and oriented 4. Limitations: no limitations Course Vital Signs 02/28/22 02/28/22 02/28/22 17:56 20:20 21:29 Temperature 98.2 F Pulse Rate 80 60 Respiratory 18 16 Rate Blood Pressure 204/88 207/123 99/83 O2 Sat by Pulse 98 98 Oximetry Medical Decision Making - Medical Decision Making Based on the patient's presentation and physical exam, do believe he requires psychiatric evaluation. He was petitioned. We will obtain basic labs due to his age. Also recommended chest x-ray and Covid swab due to his cough. He was in agreement with this plan. BAT is 0. UDS is pending. Laboratory studies are unremarkable. Covid is negative. Chest x-ray shows no acute cardiopulmonary p rocess. Vital signs show a mild hypertension, however we will repeat a monitor. On reevaluation, patient is feeling improved. I discussed with him his negative workup. He is medically cleared for evaluation by EPS. Disposition is pending psychiatric evaluation. Patient eventually was evaluated and admitted to inpatient psychiatry. - Lab Data Result diagrams: 02/28/22 19:03 02/28/22 19:03 Lab Results 02/28/22 02/28/22 02/28/22 Range/Units 19:03 19:03 19:03 WBC 7.5 (3.8-10.6) k/uL RBC 5.20 (4.30-5.90) m/uL Hgb 16.2 (13.0-17.5) gm/dL Hct 49.5 (39.0-53.0) % MCV 95.1 (80.0-100.0) fL MCH 31.0 (25.0-35.0) pg MCHC 32.7 (31.0-37.0) g/dL RDW 13.6 (11.5-15.5) % Plt Count 148 L (150-450) k/uL MPV 10.5 Neutrophils % 65 % Lymphocytes % 24 % Monocytes % 6 % Eosinophils % 3 % Basophils % 0 % Neutrophils # 4.8 (1.3-7.7) k/uL Lymphocytes # 1.8 (1.0-4.8) k/uL Monocytes # 0.4 (0-1.0) k/uL Eosinophils # 0.2 (0-0.7) k/uL Basophils # 0.0 (0-0.2) k/uL Sodium 139 (137-145) mmol/L Potassium 4.0 (3.5-5.1) mmol/L Chloride 104 (98-107) mmol/L Carbon Dioxide 23 (22-30) mmol/L Anion Gap 12 mmol/L BUN 16 (9-20) mg/dL Creatinine 1.09 (0.66-1.25) mg/dL Est GFR (CKD-EPI)AfAm 80 (>60 ml/min/1.73 sqM) Est GFR (CKD-EPI)NonAf 69 (>60 ml/min/1.73 sqM) Glucose 95 (74-99) mg/dL Calcium 9.4 (8.4-10.2) mg/dL TSH (0.465-4.680) mIU/L Coronavirus (PCR) Not Detected (Not Detectd) 02/28/22 Range/Units 19:03 WBC (3.8-10.6) k/uL RBC (4.30-5.90) m/uL Hgb (13.0-17.5) gm/dL Hct (39.0-53.0) % MCV (80.0-100.0) fL MCH (25.0-35.0) pg MCHC (31.0-37.0) g/dL RDW (11.5-15.5) % Plt Count (150-450) k/uL MPV Neutrophils % % Lymphocytes % % Monocytes % % Eosinophils % % Basophils % % Neutrophils # (1.3-7.7) k/uL Lymphocytes # (1.0-4.8) k/uL Monocytes # (0-1.0) k/uL Eosinophils # (0-0.7) k/uL Basophils # (0-0.2) k/uL Sodium (137-145) mmol/L Potassium (3.5-5.1) mmol/L Chloride (98-107) mmol/L Carbon Dioxide (22-30) mmol/L Anion Gap mmol/L BUN (9-20) mg/dL Creatinine (0.66-1.25) mg/dL Est GFR (CKD-EPI)AfAm (>60 ml/min/1.73 sqM) Est GFR (CKD-EPI)NonAf (>60 ml/min/1.73 sqM) Glucose (74-99) mg/dL Calcium (8.4-10.2) mg/dL TSH 0.941 (0.465-4.680) mIU/L Coronavirus (PCR) (Not Detectd) Disposition Clinical Impression: Encounter for psychiatric assessment Disposition: ADMITTED IP TO THIS HOSP Condition: Stable
[2022-02-28] MEDS ORDERED: LABETALOL 200 MG TAB PO STA (20:23)
[2022-02-28] MEDS: amLODIPine 5 MG TAB PO SCH (20:30)
[2022-03-01] MEDS ORDERED: LORazepam 2 MG/ML INJ IM PRN
[2022-03-01] MEDS ORDERED: haloperidoL 5 MG TAB PO PRN (01:00)
[2022-03-01] MEDS ORDERED: LORazepam 1 MG TAB PO PRN (01:00)
[2022-03-01] MEDS ORDERED: HALOPERIDOL LACTATE 5 MG/ML 1 ML VIAL IM PRN (01:00)
[2022-03-01] MEDS ORDERED: MAG HYDROX/AL HYDROX/SIMETH 30 ML CUP PO PRN (04:00)
[2022-03-01] MEDS ORDERED: MAGNESIUM HYDROXIDE 2,400 MG/10 ML CUP PO PRN (09:00)
[2022-03-01] MEDS: amLODIPine 5 MG TAB PO SCH (09:04)
[2022-03-01] MEDS: NICOTINE 14MG/24HR PATCH TRANSDERM SCH (09:04)
[2022-03-01 10:00] LABS: Chol/HDL Ratio 3.01 Ratio; LDL Cholesterol,Calculated 100.4 mg/dL (0.0-131.0)
--- NOTE | 2022-03-01 11:22 | P.HP ---
Psychiatric H&P - . H&P Date: 03/01/22 History & Physical: Allergies Allergy/AdvReac Type Severity Reaction Status Date / Time No Known Allergies Allergy Verified 02/28/22 21:44 Vital Signs Temp 97 F L 03/01/22 00:51 Pulse 55 L 03/01/22 00:51 Resp 18 03/01/22 00:51 BP 140/81 03/01/22 00:51 Pulse Ox 96 03/01/22 00:51 FiO2 Intake & Output 02/28/22 03/01/22 03/01/22 18:59 06:59 18:59 Weight 68.039 kg 67.132 kg Laboratory Last Values WBC 7.5 k/uL (3.8-10.6) 02/28/22 19:03 RBC 5.20 m/uL (4.30-5.90) 02/28/22 19:03 Hgb 16.2 gm/dL (13.0-17.5) 02/28/22 19:03 Hct 49.5 % (39.0-53.0) 02/28/22 19:03 MCV 95.1 fL (80.0-100.0) 02/28/22 19:03 MCH 31.0 pg (25.0-35.0) 02/28/22 19:03 MCHC 32.7 g/dL (31.0-37.0) 02/28/22 19:03 RDW 13.6 % (11.5-15.5) 02/28/22 19:03 Plt Count 148 k/uL (150-450) L 02/28/22 19:03 MPV 10.5 02/28/22 19:03 Neutrophils % 65 % 02/28/22 19:03 Lymphocytes % 24 % 02/28/22 19:03 Monocytes % 6 % 02/28/22 19:03 Eosinophils % 3 % 02/28/22 19:03 Basophils % 0 % 02/28/22 19:03 Neutrophils # 4.8 k/uL (1.3-7.7) 02/28/22 19:03 Lymphocytes # 1.8 k/uL (1.0-4.8) 02/28/22 19:03 Monocytes # 0.4 k/uL (0-1.0) 02/28/22 19:03 Eosinophils # 0.2 k/uL (0-0.7) 02/28/22 19:03 Basophils # 0.0 k/uL (0-0.2) 02/28/22 19:03 Sodium 139 mmol/L (137-145) 02/28/22 19:03 Potassium 4.0 mmol/L (3.5-5.1) 02/28/22 19:03 Chloride 104 mmol/L (98-107) 02/28/22 19:03 Carbon Dioxide 23 mmol/L (22-30) 02/28/22 19:03 Anion Gap 12 mmol/L 02/28/22 19:03 BUN 16 mg/dL (9-20) 02/28/22 19:03 Creatinine 1.09 mg/dL (0.66-1.25) 02/28/22 19:03 Est GFR (CKD-EPI)AfAm 80 (>60 ml/min/1.73 sqM) 02/28/22 19:03 Est GFR (CKD-EPI)NonAf 69 (>60 ml/min/1.73 sqM) 02/28/22 19:03 Glucose 95 mg/dL (74-99) 02/28/22 19:[address] Glu mg/dL 120 02/28/22 19:03 Hemoglobin A1c 5.8 % (0.0-6.0) 02/28/22 19:03 Calcium 9.4 mg/dL (8.4-10.2) 02/28/22 19:03 Triglycerides 55.50 mg/dL (0.00-149.00) 02/28/22 19: Cholesterol 167.00 mg/dL (0.00-200.00) 02/28/22 19:03 LDL Cholesterol, Calc 100.4 mg/dL (0.0-131.0) 02/28/22 19:03 VLDL Cholesterol, Calc 11.10 mg/dL (5.00-40.00) 02/28/22 19:03 HDL Cholesterol 55.50 mg/dL (40.00-60.00) 02/28/22 19:03 Cholesterol/HDL Ratio 3.01 Ratio 02/28/22 19:03 TSH 0.941 mIU/L (0.465-4.680) 02/28/22 19:03 Coronavirus (PCR) Not Detected (Not Detectd) 02/28/22 19:03 03/01/22 11:22 IDENTIFYING DATA: Patient is a , on Social Security, 66-year-old - Malagasy male who was admitted involuntarily under petition and certification due to bizarre and agitated behaviors. HPI: Patient presented to the hospital on 02/28/2022, brought into the hospital under petition by the loan workout officer for "acting erratic while talking with officers and staff. Being aggressive towards officers. Hans has been talking to objects/sparks all day. Hans is constantly yelling for no reason and thre atening staff as well as [facility]." He has been noted to be responding to internal stimuli and yelling racial profanities at others. He was subsequently admitted to our psychiatric unit. Upon evaluation or psychiatric unit, the patient is currently denying any overt psychotic or bizarre behaviors. He is denying what was written down on the petition and certification. He states that he was upset with the staff at [facility] due to them "taking away my phone, but I'm okay now." The patient is currently denying any hallucinations or any delusions at this time. He is denying any suicidal or homicidal ideation, intention, and/or plan. He is not reporting any manic symptoms and states that he is sleeping and eating well. The patient does have a significant history of substance abuse, in particular crack cocaine use. He has had numerous inpatient psychiatric admissions for psychotic behavior in the context of substance use. The patient refused drug testing upon this admission. He does admit to this provider however that he engage in crack cocaine use approximately 3 weeks prior to this admission. The patient states that he likes to take his navane however there is a question as to whether he is adherent with his medications. He is agreeable to transitioning to Invega Sustenna during this hospitalization. PAST PSYCHIATRIC HISTORY: Patient states that he has been previously diagnosed with schizophrenia. Patient states he only takes navane. Last hospitalized on our psychiatric unit in April of 2021. He is open with [facility]. Patient denies any history of suicide attempts in the past. PMH: ALLERGIES: NO KNOWN DRUG ALLERGIES CHEMICAL DEPENDENCY HISTORY: The patient does have a significant history substance abuse although he is guarded about his use. He does admit to daily tobacco use. He denies any alcohol use. He reports frequent marijuana use. The patient does admit to crack cocaine use approximately 3 weeks ago. FAMILY PSYCHIATRIC/SUBSTANCE USE HISTORY: No reported family psychiatric history. SOCIAL HISTORY: Patient was born and raised in [place], [place]. He currently lives in [place] and has been staying at the [facility]. He expresses concern as to whether he is able to return there. He does have a history of incarceration for 10 years for selling battery and was released from jail in 2010. She denies any current legal issues. He states that he has 1 son and 4 grandchildren. He is . He was for 30 years, but from his 1972. His in January 2021. MENTAL STATUS EXAM: General Appearance: Patient appears to be stated age is alert, directable, and attempts to cooperate. Patient appears to have poor hygiene and grooming. Bald and thin build. Behavior: Patient is seated without any agitated behavior. Normal psychomotor activity. Eye contact is appropriate. Speech: Patient's speech is fluent and nonpressured. Mood/Affect: Patient reports their mood is "feeling better," affect is congruent but guarded. Suicidality/Homicidality: Patient is denying any suicidal or homicidal ideation, intention, and/or plan. Perceptions: Patient denies any visual hallucinations and denies any auditory hallucinations Though content/process: There is no evidence of any delusional thought content and thought process is linear and goal-directed. Memory and concentration: AOX3, grossly intact for the purposes of this session. Can spell "WORLD" backwards Judgment and insight: Poor STRENGTHS/WEAKNESSES: Strength is that the patient has housing, stable income, and follows with [facility]. Weakness is that the patient engages in heavy substance abuse and appears to be precontemplative on stopping. INTELLECT: average IMPRESSIONS: Schizophrenia Substance-induced psychotic disorder Polysubstance abuse - crack coaine, marijuana Nicotine dependence PLAN: -Patient is admitted under involuntary however signed voluntary status to MHU for stabilization of psychiatric symptoms and safety. Patient signed adult voluntary form and medication consent and is placed in patient's chart. -Medications : We will discontinue Navane and start invega 3 mg at bedtime with plans to transition to invega sustenna. -Ativan and Haldol PRN for agitation/aggression -Patient was counselled on substance abuse and desired to cut back on use -Patient was informed of the risks, benefits and side effects of the medication and patient verbally consented to taking the medications. Patient signed med consent form and was placed in chart. -Internal Medicine consult to perform medical evaluation and physical. -NRT - nicotine patch -SW on board for discharge planning. Encourage patient to participate in groups to work on coping skills.
[2022-03-01] MEDS: ACETAMINOPHEN TAB 325 MG TAB PO PRN ×2 (15:37→20:47)
[2022-03-01] MEDS ORDERED: THIOTHIXENE 1 MG CAP PO SCH (21:00)
[2022-03-01] MEDS ORDERED: PALIPERIDONE 3 MG TAB.ER.24 PO SCH (21:00)
--- NOTE | 2022-03-02 04:05 | P.PN ---
Progress Note - Text Progress Note Date: 03/01/22 Attempted to see the patient in the mental health unit at 2200 on 03/01. The patient was actively psychotic and inappropriate for evaluation as per the mental health unit RN.
[2022-03-02] MEDS: NICOTINE 14MG/24HR PATCH TRANSDERM SCH (09:44)
[2022-03-02] MEDS: amLODIPine 5 MG TAB PO SCH (09:44)
[2022-03-02 09:47] VITALS: RESP 16
--- NOTE | 2022-03-02 14:18 | P.PN ---
Progress Note - Text Progress Note Date: 03/02/22 Interval History: Patient was seen wandering the hallways and was directable and agreeable to speak with telegraphic typewriter installer in the office. The patient is currently reporting that he is feeling significantly better. He remains future and goal oriented. He states that he is concerned about whether he continues to have housing at the [facility]. He is currently not reporting any suicidal or homicidal ideation, intention, and/or plan. He is not reporting any auditory or visual cheng ucinations. He is denying any paranoia or other delusions. He is in agreement with the plan to transition to Invega Sustenna tomorrow. Mental Status Exam: General Appearance: Patient appears to be stated age is alert, directable, and cooperative. Behavior: Patient is calmly seated without any agitated behavior. Speech: Patient's speech is fluent and nonpressured. Mood/Affect: Mood is improving mildly, affect is congruent and constricted. Suicidality/Homicidality: Patient denies having any suicidal or homicidal ideation intent or plan. Perceptions: Patient denies any visual hallucinations and denies any auditory hallucinations Though content/process: There is no evidence of any delusional thought content and thought process is linear and goal-directed. Memory and concentration: AOX3, grossly intact for the purposes of this session Judgment and insight: Improving mildly Vital Signs Temp 96.9 F L 03/02/22 09:46 Pulse 83 03/02/22 09:46 Resp 16 03/02/22 09:46 BP 140/62 03/02/22 09:46 Pulse Ox 95 03/02/22 09:46 FiO2 Assessment Schizophrenia Substance-induced psychotic disorder Polysubstance abuse - crack coaine, marijuana Nicotine dependence Plan: -Patient continues to meet criteria for inpatient psychiatric admission for symptom stabilization and safety. Patient has signed adult voluntary form and me dication consent and was placed in patient's chart. -Medications: Increase Invega to 6 mg by mouth at bedtime for mood stabilization/psychosis. Plan is to transition him to Invega Sustenna tomorrow. -When necessary Ativan and Haldol for agitation/aggression. -NRT - nicotine patch -SW on board for discharge planning. Encouraged the patient to participate in milieu.
[2022-03-02] MEDS: ACETAMINOPHEN TAB 325 MG TAB PO PRN (20:38)
[2022-03-02] MEDS ORDERED: PALIPERIDONE 6 MG TAB.ER.24 PO SCH (21:00)
--- NOTE | 2022-03-03 04:14 | P.CONS ---
History of Present Illness - Reason for Consult Consult date: 03/02/22 - History of Present Illness The patient is a 58-year-old male with a history of substance use and multiple psychiatric illnesses who was brought into the emergency room for erratic behavior under police custody. The patient was admitted to the mental health unit where he was seen and evaluated. The patient reports that he was not acting like himself and that he is glad that his medications were recently changed. He is eager to be discharged soon to go about his life. He reports smoking 2 cigarettes daily but denied any alcohol or substance use at this time. Denied any physical complaints at the time of interview. Denied extremity chest discomfort, shortness of cough, chills, cough, nausea, vomiting, abdominal pain, diarrhea. Review of systems: Pertinent positives and negatives as discussed in HPI, a complete review of systems was performed and all other systems are negative. Physical examination: General: non toxic, no distress, appears at stated age, normal weight Derm: no unusual rashes/lesions, no unusual ecchymoses, warm, dry Head: atraumatic, normocephalic, symmetric Eyes: EOMI, no lid lag, anicteric sclera ENT: Nose and ears atraumatic, no thrush, no pharyngeal erythema Neck: trachea midline, supple Mouth: no lip lesion, mucus membranes moist Cardiovascular: S1S2 reg, no murmur, no edema Lungs: CTA bilateral, no rhonchi, no rales , no accessory muscle use Abdominal: soft, nontender to palpation, no guarding Ext: no gross muscle atrophy, no contractures, Neuro: No gross focal neuro deficits noted Psych: Alert, oriented, appropriate affect Assessment/plan Mild thrombocytopenia -Monitor for now -Unclear etiology Tobacco abuse -Advised on importance of cessation Psychosis -As per psychiatry Thank you for allowing us to participate in the care of this patient. We will follow peripherally. Do not hesitate to contact us with questions. Someone can be reached from the [facility] hospitalist group at all hours of the day at [phone]. Past Medical History Past Medical History: Hypertension Additional Past Medical History / Comment(s): "some kind of mental illness" History of Any Multi-Drug Resistant Organisms: None Reported, Unobtainable Past Surgical History: Orthopedic Surgery, Unable to Obtain Additional Past Surgical History / Comment(s): lt knee Past Anesthesia/Blood Transfusion Reactions: No Reported Reaction Past Psychological History: Schizophrenia, Unable to Obtain Smoking Status: Current every day smoker Past Alcohol Use History: None Reported, Unable to Obtain Past Drug Use History: Cocaine, Marijuana - Past Family History Father Family Medical History: Cancer Medications and Allergies Home Medications Medication Instructions Recorded Confirmed Type Thiothixene [Navane] 2 mg PO HS@2100 02/28/22 02/28/22 History Allergies Allergy/AdvReac Type Severity Reaction Status Date / Time No Known Allergies Allergy Verified 02/28/22 21:44 Physical Exam Vitals: Vital Signs Temp Pulse Resp BP Pulse Ox 03/02/22 09:46 96.9 F L 83 16 140/62 95 Results CBC & Chem 7: 02/28/22 19:03 02/28/22 19:03
[2022-03-03] MEDS: amLODIPine 5 MG TAB PO SCH (09:20)
[2022-03-03] MEDS: NICOTINE 14MG/24HR PATCH TRANSDERM SCH (09:21)
[2022-03-03] MEDS ORDERED: PALIPERIDONE IM 156 MG/ML SYG IM STA (09:56)
--- NOTE | 2022-03-03 11:11 | P.PN ---
Progress Note - Text Progress Note Date: 03/03/22 Interval History: Patient was seen wandering the hallways and was directable and agreeable to speak with speech writer in the office. The patient is reporting that he is feeling significant better. He is denying any auditory or visual hallucinations. He is not reporting any paranoia or other delusions. He is vehemently denying any suicidal or homicidal ideation, intention, and/or plan. The patient has been in adherent with his medication and is not reporting any significant side effects. He does inquire whether the Invega will affect his ability to use marijuana however was educated on abstaining or cutting down his marijuana use. He is agreeable to the transition to Invega Sustenna today. As per discussion with the treatment team, the patient currently is unable to return to the [facility] due to his behaviors and substance use. Mental Status Exam: General Appearance: Patient appears to be stated age is alert, directable, and cooperative. Behavior: Patient is calmly seated without any agitated behavior. Speech: Patient's speech is fluent and nonpressured. Mood/Affect: Mood is improving mildly, affect is congruent and constricted. Suicidality/Homicidality: Patient denies having any suicidal or homicidal ideation intent or plan. Perceptions: Patient denies any visual hallucinations and denies any auditory hallucinations Though content/process: There is no evidence of any delusional thought content and thought process is linear and goal-directed. Memory and concentration: AOX3, grossly intact for the purposes of this session Judgment and insight: Improving mildly Vital Signs Temp 96.9 F L 03/02/22 09:46 Pulse 83 03/02/22 09:46 Resp 16 03/02/22 09:46 BP 140/62 03/02/22 09:46 Pulse Ox 95 03/02/22 09:46 FiO2 Assessment Schizophrenia Substance-induced psychotic disorder Polysubstance abuse - crack coaine, marijuana Nicotine dependence Plan: -Patient continues to meet criteria for inpatient psychiatric admission for symptom stabilization and safety. Patient has signed adult voluntary form and medication consent and was placed in patient's chart. -Medications: We will administer Invega Sustenna 156 mg IM today. -When necessary Ativan and Haldol for agitation/aggression. -NRT - nicotine patch -SW on board for discharge planning. Encouraged the patient to participate in milieu.
[2022-03-04 06:51] VITALS: BP 119/68; PULSE 75; TEMP 98.5
[2022-03-04] MEDS: NICOTINE 14MG/24HR PATCH TRANSDERM SCH (09:41)
[2022-03-04] MEDS: amLODIPine 5 MG TAB PO SCH (09:41)
--- NOTE | 2022-03-04 12:32 | P.DS ---
Providers Date of admission: 02/28/22 23:52 Expected date of discharge: 03/04/22 Attending physician: Leonardo Kelly MD Consults: 02/28/22 23:55 Consult Physician Routine Consulting Provider: Carloz Romero Consult Reason/Comments: H&P and medical and HTN Do you want consulting provider notified?: Yes Primary care physician: Stated None - Discharge Diagnosis(es) (1) Schizophrenia Current Visit: Yes Status: Acute Priority: High (2) Cocaine abuse Current Visit: Yes Status: Chronic Priority: Medium (3) Tobacco use disorder Current Visit: Yes Status: Chronic Priority: Medium Hospital Course: Admission HPI: Patient is a , on Social Security, 66-year-old -[place] male who was admitted involuntarily under petition and certification due to bizarre and agitated behaviors. Patient presented to the hospital on 02/28/2022, brought into the hospital under petition by the tactical intelligence officer for "acting erratic while talking with officers and staff. Being aggressive towards officers. Hans has been talking to objects/sparks all day. Hans is constantly yelling for no reason and threatening staff as well as [facility]." He has been noted to be responding to internal stimuli and yelling racial profanities at others. He was subsequently admitted to our psychiatric unit. Upon evaluation or psychiatric unit, the patient is currently denying any overt psychotic or bizarre behaviors. He is denying what was written down on the petition and certification. He states that he was upset with the staff at [facility] due to them "taking away my phone, but I'm okay now." The patient is currently denying any hallucinations or any delusions at this time. He is denying any suicidal or homicidal ideation, intention, and/or plan. He is not reporting any manic symptoms and states that he is sleeping and eating well. The patient does have a significant history of substance abuse, in particular crack cocaine use. He has had numerous inpatient psychiatric admissions for psychotic behavior in the context of substance use. The patient refused drug testing upon this admission. He does admit to this provider however that he engage in crack cocaine use approximately 3 weeks prior to this admission. The patient states that he likes to take his navane however there is a question as to whether he is adherent with his medications. He is agreeable to transitioning to Invega Sustenna during this hospitalization. Patient states that he has been previously diagnosed with schizophrenia. Patient states he only takes navane. Last hospitalized on our psychiatric unit in April of 2021. He is open with [facility]. Patient denies any history of suicide attempts in the past. Hospital course: Upon admission to the unit patient was initially noted to be irritable however was agreeable to commence treatment. He was noted prior to his admission to the psychiatric unit to be responding to internal stimuli and at times grossly disorganized. Patient was compliant with the medications and denied any side effects throughout hospital course. Patient was started on Invega and was eventually transition to Invega Sustenna. Patient spoke of his stressors and engaged in therapy both group and individual. Patient was also seen by medical team for history and physical exam. Over the course of hospital position, the patient displayed significant improvement in regards to target symptoms of psychosis. He expressed concern about his housing situation and was informed that he would be staying at [facility] instead of his current residence at [facility]. On the day of discharge, the patient is not reporting any suicidal or homicidal ideation, intention, and/or plan. He is not reporting any auditory or visual hallucinations. He denies any access to firearms or weapons. The patient has been adherent with his medication is not reporting any significant side effects this time. The patient does have significant history substance abuse, in particular crack cocaine use. His counts at length on abstaining from all substances including alcohol and marijuana. Furthermore, the patient would be staying at [facility] for further substance abuse treatment. He was offered however declined inpatient substance-abuse rehabilitation. The patient was counseled on the importance of medication adherence appropriate outpatient follow-up. Prior to discharge, a meeting was arranged by social sciences professor to answer any questions and ensure safety. Mental status exam: General Appearance: Patient appears to be stated age is alert, pleasant, and cooperative. Patient is in no acute distress and has fair hygiene and grooming Behavior: Patient is calmly seated without any agitated behavior. Speech: Patient's speech is fluent and nonpressured. Mood/Affect: Patient reports their mood is "much better", affect is congruent and euthymic. Suicidality/Homicidality: Patient denies having any suicidal or homicidal ideation intent or plan. Perceptions: Patient denies any auditory or visual hallucinations. Though content/process: There is no evidence of any delusional thought content and thought process is linear and goal-directed. Patient is future and goal oriented. Memory and concentration: AOX3, grossly intact for the purposes of this session. Can spell "WORLD" backwards correctly. Judgment and insight: Improved with guarded prognosis Impression: Schizophrenia Substance-induced psychotic disorder Polysubstance abuse - crack coaine, marijuana Nicotine dependence Plan: -Continue with discharge today as patient has improved and stabilized psychiatrically and is not currently an imminent threat to himself and/or oth ers. Patient will remain at chronically elevated risk due to his substance abuse. -Continue medications: Invega Sustenna 156 Delmy grams IM was administered on 03/03/2022. Next dose is due on 03/31/2022. -Patient was counseled on the need for medication compliance and appropriate follow-up at mental health and also primary care for medical issues. Patient verbalized understanding and agreed. -Social work to arrange for and conduct family meeting to ensure safety upon discharge and answer any questions/concerns. Social work also to arrange for patients follow up appointments with [facility] for psychiatric care along with follow up with primary care provider. -Patient counseled on abstaining from recreational drugs and marijuana and alcohol. Was informed/educated on the adverse effects on their physical and mental health. Patient verbally agreed and understood. Patient was offered inpatient substance abuse treatment however declined at this time. -Patient was instructed to return to the hospital or seek immediate medical care if their psychiatric or medical symptoms do worsen or reoccur. -Psychoeducation and supportive therapy provided to patient. Risks and benefits of pharmacological treatment versus the risks and benefits of nontreatment weight and discussed. Informed consent discussion held. Common side effects of psychotropics discussed such as, but not limited to headache, GI disturbance, sexual dysfunction, movement disorders, sedation, and orthostatic hypotension. Life threatening and blackbox warnings of prescribed medications also discussed. Potential risks of operating a vehicle or heavy machinery discussed with patient at length. Advised on importance of compliance and a reliable and responsible manner. Patient advised to review FDA consumer labeling of all medications prior to taking. Patient verbalized understanding of potential risks, and agrees with current treatment plan. Patient advised to medically contact physician/emergency personnel if any acute changes in condition occur. Vital Signs Temp 98.5 F 03/04/22 06:49 Pulse 75 03/04/22 06:49 Resp 16 03/04/22 06:49 BP 119/68 03/04/22 06:49 Pulse Ox 99 03/04/22 06:49 FiO2 Laboratory Results WBC 7.5 k/uL (3.8-10.6) 02/28/22 19:03 RBC 5.20 m/uL (4.30-5.90) 02/28/22 19:03 Hgb 16.2 gm/dL (13.0-17.5) 02/28/22 19:03 Hct 49.5 % (39.0-53.0) 02/28/22 19:03 MCV 95.1 fL (80.0-100.0) 02/28/22 19:03 MCH 31.0 pg (25.0-35.0) 02/28/22 19:03 MCHC 32.7 g/dL (31.0-37.0) 02/28/22 19:03 RDW 13.6 % (11.5-15.5) 02/28/22 19:03 Plt Count 148 k/uL (150-450) L 02/28/22 19:03 MPV 10.5 02/28/22 19:03 Neutrophils % 65 % 02/28/22 19:03 Lymphocytes % 24 % 02/28/22 19:03 Monocytes % 6 % 02/28/22 19:03 Eosinophils % 3 % 02/28/22 19:03 Basophils % 0 % 02/28/22 19:03 Neutrophils # 4.8 k/uL (1.3-7.7) 02/28/22 19:03 Lymphocytes # 1.8 k/uL (1.0-4.8) 02/28/22 19:03 Monocytes # 0.4 k/uL (0-1.0) 02/28/22 19:03 Eosinophils # 0.2 k/uL (0-0.7) 02/28/22 19:03 Basophils # 0.0 k/uL (0-0.2) 02/28/22 19:03 Sodium 139 mmol/L (137-145) 02/28/22 19:03 Potassium 4.0 mmol/L (3.5-5.1) 02/28/22 19:03 Chloride 104 mmol/L (98-107) 02/28/22 19:03 Carbon Dioxide 23 mmol/L (22-30) 02/28/22 19:03 Anion Gap 12 mmol/L 02/28/22 19:03 BUN 16 mg/dL (9-20) 02/28/22 19:03 Creatinine 1.09 mg/dL (0.66-1.25) 02/28/22 19:03 Est GFR (CKD-EPI)AfAm 80 (>60 ml/min/1.73 sqM) 02/28/22 19:03 Est GFR (CKD-EPI)NonAf 69 (>60 ml/min/1.73 sqM) 02/28/22 19:03 Glucose 95 mg/dL (74-99) 02/28/22 19:[address] Glu mg/dL 120 02/28/22 19:03 Hemoglobin A1c 5.8 % (0.0-6.0) 02/28/22 19:03 Calcium 9.4 mg/dL (8.4-10.2) 02/28/22 19:03 Triglycerides 55.50 mg/dL (0.00-149.00) 02/28/22 19:03 Cholesterol 167.00 mg/dL (0.00-200.00) 02/28/22 19:03 LDL Cholesterol, Calc 100.4 mg/dL (0.0-131.0) 02/28/22 19:03 VLDL Cholesterol, Calc 11.10 mg/dL (5.00-40.00) 02/28/22 19:03 HDL Cholesterol 55.50 mg/dL (40.00-60.00) 02/28/22 19:03 Cholesterol/HDL Ratio 3.01 Ratio 02/28/22 19:03 TSH 0.941 mIU/L (0.465-4.680) 02/28/22 19:03 Coronavirus (PCR) Not Detected (Not Detectd) 02/28/22 19:03 Allergies Allergy/AdvReac Type Severity Reaction Status Date / Time No Known Allergies Allergy Verified 02/28/22 21:44 Patient Condition at Discharge: Stable Plan - Discharge Summary New Discharge Prescriptions: New amLODIPine [Norvasc] 5 mg PO DAILY tab Paliperidone IM [Invega Sustenna] 156 mg IM QMONTHLY #1 each Discontinued Thiothixene [Navane] 2 mg PO HS@2100 Discharge Medication List Paliperidone IM [Invega Sustenna] 156 mg IM QMONTHLY #1 each 03/04/22 [Rx] amLODIPine [Norvasc] 5 mg PO DAILY tab 03/04/22 [Rx] Follow up Appointment(s)/Referral(s): [facility] [NON-STAFF] - 1-2 Days [facility] [NON-STAFF] - 03/07/22 9:30 am (appt with Lexa Bell 03/16/22 at 2:30 with Krishan Castorena) Patient Instructions/Handouts: How to Stop Smoking (DC), Cocaine Abuse (DC), Cannabis Abuse (DC), Methamphetamine Abuse (DC) Activity/Diet/Wound Care/Special Instructions: Avoid the use of street drugs and alcohol. Take all prescriptions as prescribed. When you are in need of refills on your medications, please contact your medical provider and/or outpatient psychiatrist to have this done. Please go to scheduled outpatient appointment for aftercare treatment. If symptoms return or become worse, call the crisis line at and/or go to the nearest emergency room for evaluation. Discharge Disposition: HOME SELF-CARE
== END 2022-03-04 14:15 | disposition home or self-care (01) | DRG 885 ==
LOC: EC 17:39 → 3MHU 23:52
PROVIDERS: ADMIT Psychiatry & Neurology Psychiatry; ATTEND Psychiatry & Neurology Psychiatry
DX: F20.9 Schizophrenia, unspecified (principal); R45.851 Suicidal ideations; Z20.822 Contact with and (suspected) exposure to COVID-19; F19.959 Other psychoactive substance use, unspecified with psychoactive substance-induced psychotic disorder, unspecified; F17.210 Nicotine dependence, cigarettes, uncomplicated; F14.10 Cocaine abuse, uncomplicated; D69.6 Thrombocytopenia, unspecified; I10 Essential (primary) hypertension; Z63.5 Disruption of family by separation and divorce; Z71.6 Tobacco abuse counseling; Z71.51 Drug abuse counseling and surveillance of drug abuser
CPT/HCPCS: 36415; 71045; 80048; 80061; 82075; 83036; 84443; 85025; 87635; 96374; 96376; 99285

== ENCOUNTER 2022-03-24 21:34 | Emergency (ER) | payer MEDICARE, OTHER ==
[2022-03-24 21:47] VITALS: RESP 16; TEMP 98
[2022-03-24] MEDS ORDERED: ONDANSETRON 4 MG/2 ML VIAL IVP STA (22:10)
[2022-03-24] MEDS ORDERED: SODIUM CHLORIDE 0.9% 500 ML 500 ML IV STA (22:10)
[2022-03-24] MEDS ORDERED: ASPIRIN 81 MG PO STA (22:10)
[2022-03-24 22:32] LABS: Basophils % (A) 0 %; Eosinophils # (A) 0.2 k/uL (0-0.7); Eosinophils % (A) 2 %; HCT 45.9 % (39.0-53.0); HGB 15.1 gm/dL (13.0-17.5); Lymphocytes # (A) 1.2 k/uL (1.0-4.8); Lymphocytes % (A) 10 %; MCH 31.3 pg (25.0-35.0); MCV 95.1 fL (80.0-100.0); Mean Platelet Volume 9.7; Monocytes # (A) 0.5 k/uL (0-1.0); Monocytes % (A) 4 %; Neutrophils # (A) 9.9 k/uL (1.3-7.7); Neutrophils % (A) 84 %; Platelet Count 208 k/uL (150-450); RBC 4.83 m/uL (4.30-5.90); RDW 13.4 % (11.5-15.5); WBC 11.9 k/uL (3.8-10.6)
--- NOTE | 2022-03-24 22:38 | ED ---
General Adult HPI - General Chief complaint: Overdose Stated complaint: Drug issue Time Seen by Provider: 03/24/22 21:57 Source: patient, RN notes reviewed, old records reviewed Mode of arrival: ambulatory Limitations: no limitations - History of Present Illness Initial comments: Patient is a 67-year-old male with past medical history remarkable for psy chiatric illness, hypertension who presents emergency Department after he smoked some marijuana earlier this evening and believes it may have been laced with heroin. Patient is homeless. Denies any acute complaints. States earlier he may have had some mild chest discomfort after smoking the drug. Denies any difficulty in breathing. States his stomach feels "sour." Denies any episodes of emesis. Denies diarrhea. Denies fevers or chills. Is requesting coffee. Denies any other acute complaints at this time. Presents for further evaluation at this time. - Related Data Previous Rx's Medication Instructions Recorded Paliperidone IM [Invega Sustenna] 156 mg IM QMONTHLY #1 each 03/04/22 amLODIPine [Norvasc] 5 mg PO DAILY tab 03/04/22 Allergies Allergy/AdvReac Type Severity Reaction Status Date / Time No Known Allergies Allergy Verified 02/28/22 21:44 Review of Systems ROS Statement: Those systems with pertinent positive or pertinent negative responses have been documented in the HPI. ROS Other: All systems not noted in ROS Statement are negative. Past Medical History Past Medical History: Hypertension Additional Past Medical History / Comment(s): "some kind of mental illness" History of Any Multi-Drug Resistant Organisms: None Reported, Unobtainable Past Surgical History: Orthopedic Surgery, Unable to Obtain Additional Past Surgical History / Comment(s): lt knee Past Anesthesia/Blood Transfusion Reactions: No Reported Reaction Past Psychological History: Schizophrenia, Unable to Obtain Smoking Status: Current every day smoker Past Alcohol Use History: None Reported, Unable to Obtain Past Drug Use History: Cocaine, Marijuana - Past Family History Father Family Medical History: Cancer General Exam - General Exam Comments Initial Comments: General: Appears in no acute distress. HEAD: Normal with no signs of head trauma. EYES: PERRLA, EOMI, conjunctiva normal, no discharge. ENT: Hearing grossly intact, normal oropharynx. RESPIRATORY: Clear breath sounds bilaterally. No wheezes, rales, or rhonchi. No hypoxia. No respiratory depression. C/V: Regular rate and rhythm. S1 and S2 auscultated, no edema, peripheral pulses 2+ and intact throughout ABD: Abd is soft, nontender, nondistended EXT: Normal range of motion, no obvious deformity SKIN: No rashes or lesions observed on exposed skin. NEURO: Alert and oriented x 4. Cranial nerves II-XII intact. No focal sensory or strength deficits. Limitations: no limitations Course Vital Signs 03/24/22 03/24/22 03/25/22 21:44 21:57 00:00 Temperature 98 F Pulse Rate 75 70 Pulse Rate [ 72 Pulse Oximetery ] Respiratory 16 16 Rate Blood Pressure 167/91 144/76 O2 Sat by Pulse 97 97 Oximetry Medical Decision Making - Medical Decision Making Based on the patient's presentation and physical exam, he is well-appearing and did smoke some marijuana laced with heroin earlier today. States this occurred around 3 PM. Is currently approximately 10 PM. Is relatively asymptomatic at this time. Is requesting coffee. He is homeless. Vital signs within acceptable limits. We will obtain basic labs on him as well as a screening EKG. He'll receive IV fluids as well as IV Zofran. He was in agreement this plan. He will be given a cup of coffee. EKG was obtained showed no acute findings. Laboratory studies were unremarkable. On reevaluation, patient is feeling well. He is eating and drinking multiple cups of coffee. We discussed his negative workup. I believe is safe for him to be discharged home at this time and he was in agreement this plan. He'll be given warm socks, as well as an additional Coffee to go. We did discuss quitting his substance abuse. He expressed understanding. Vital signs remained within acceptable limits. I instructed the patient to follow up with their PCP in the next 1-3 days. I explained that the patient should return to the emergency department if they experience any worsening symptoms. Strict return precautions were discussed with the patient. The patient expressed understanding of these instructions. I answered all questions that the patient had. The patient was discharged home in good condition with their prescriptions and follow up information. - Lab Data Result diagrams: 03/24/22 22:22 03/24/22 22:22 Lab Results 03/24/22 03/24/22 Range/Units 22:22 22:22 WBC 11.9 H (3.8-10.6) k/uL RBC 4.83 (4.30-5.90) m/uL Hgb 15.1 (13.0-17.5) gm/dL Hct 45.9 (39.0-53.0) % MCV 95.1 (80.0-100.0) fL MCH 31.3 (25.0-35.0) pg MCHC 33.0 (31.0-37.0) g/dL RDW 13.4 (11.5-15.5) % Plt Count 208 (150-450) k/uL MPV 9.7 Neutrophils % 84 % Lymphocytes % 10 % Monocytes % 4 % Eosinophils % 2 % Basophils % 0 % Neutrophils # 9.9 H (1.3-7.7) k/uL Lymphocytes # 1.2 (1.0-4.8) k/uL Monocytes # 0.5 (0-1.0) k/uL Eosinophils # 0.2 (0-0.7) k/uL Basophils # 0.0 (0-0.2) k/uL Sodium 145 (137-145) mmol/L Potassium 3.7 (3.5-5.1) mmol/L Chloride 111 H (98-107) mmol/L Carbon Dioxide 25 (22-30) mmol/L Anion Gap 9 mmol/L BUN 15 (9-20) mg/dL Creatinine 1.04 (0.66-1.25) mg/dL Est GFR (CKD-EPI)AfAm 85 (>60 ml/min/1.73 sqM) Est GFR (CKD-EPI)NonAf 73 (>60 ml/min/1.73 sqM) Glucose 94 (74-99) mg/dL Calcium 7.6 L (8.4-10.2) mg/dL - EKG Data -: EKG Interpreted by Me EKG Comments: 12-lead Electrocardiogram Interpretation Note EKG was reviewed and interpreted by myself. 12-lead ECG performed at 2307 is interpreted by me as revealing sinus bradycardia at a rate of 55 beats per minute. [place] is normal. [place] intervals 136 ms, QRS durations 104 ms, QTc is 426 ms.. There were no acute ST or T wave abnormalities to suggest myocardial ischemia or injury. R wave progression across the precordium was satisfactory. By my interpretation this EKG is non-diagnostic for acute ischemia. Appears similar to EKGs from 2019 and 2020. There is J-point elevation in leads V2 and V3 which is seen in these EKGs. Unchanged. Disposition Clinical Impression: Substance abuse Disposition: HOME SELF-CARE Condition: Good Instructions (If sedation given, give patient instructions): Polysubstance Abuse (ED) Is patient prescribed a controlled substance at d/c from ED?: No Referrals: None,Stated [Primary Care Provider] - 1-2 days Time of Disposition: 23:45
[2022-03-24 22:48] LABS: Calcium 7.6 mg/dL (8.4-10.2); Potassium 3.7 mmol/L (3.5-5.1)
[2022-03-25 00:01] VITALS: BP 144/76; PULSE 70
== END 2022-03-25 00:34 | disposition home or self-care (01) ==
LOC: EC 21:34
DX: T50.901A Poisoning by unspecified drugs, medicaments and biological substances, accidental (unintentional), initial encounter (principal); I10 Essential (primary) hypertension; F12.90 Cannabis use, unspecified, uncomplicated; F17.200 Nicotine dependence, unspecified, uncomplicated; Z79.899 Other long term (current) drug therapy
CPT/HCPCS: 36415; 93005; 80048; 85025; 99284; 96374; 96361 ×2; J2405

== ENCOUNTER 2024-01-11 14:57 | Emergency (ER) | payer MEDICARE, OTHER ==
[2024-01-11] MEDS ORDERED: DIPH,PERTUS(ACELL)TETVAC-LF 0.5 ML VIAL IM ONE (16:37)
[2024-01-11] MEDS ORDERED: ACETAMINOPHEN TAB 500 MG TAB ONE (16:37)
[2024-01-11] MEDS ORDERED: IBUPROFEN 600 MG TAB PO ONE (16:37)
[2024-01-11] MEDS ORDERED: BACITRACIN OINT 1 EACH PACKET TOPICAL ONE (17:01)
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
== END 2024-01-11 20:11 | disposition home or self-care (01) ==
LOC: EC 14:57
CPT/HCPCS: 70491; 90471; 90715; 99283